=== PATIENT | female | born 1980 | race Caucasian/White ===

== ENCOUNTER 2020-01-22 03:15 | Inpatient (IN) | payer OTHER ==
[2020-01-22] VITALS (8 sets, daily range): BP systolic 99–119; BP diastolic 43–63
[~2020-01-22] VITALS: Ht 175.3 cm; Wt 73.0 kg
[2020-01-22] MEDS ORDERED: SUCCINYLCHOLINE 200 MG/10 ML VIAL. ONE (03:52)
[2020-01-22] MEDS ORDERED: ROCURONIUM 50 MG/5 ML VIAL. ONE (03:52)
[2020-01-22] MEDS ORDERED: MIDAZOLAM HCL/PF 2 MG/2 ML VIAL. ONE (03:52)
[2020-01-22] MEDS ORDERED: fentaNYL PF VIAL 100 MCG/2 ML VIAL ONE ×3 (03:52→06:47)
[2020-01-22] MEDS ORDERED: NEOSTIGMINE METHYLSULFATE 5 MG/5 ML SYRINGE. ONE (03:52)
[2020-01-22] MEDS ORDERED: GLYCOPYRROLATE 1 MG/5 ML VIAL. ONE (03:54)
[2020-01-22] MEDS ORDERED: MORPHINE SULFATE 2 MG/ML VIAL. IV PRN (04:00)
[2020-01-22] MEDS ORDERED: HYDROmorphone 2 MG/ML VIAL IV PRN (04:00)
[2020-01-22] MEDS ORDERED: PROCHLORPERAZINE 10 MG/2 ML VIAL. IV PRN (04:00)
[2020-01-22] MEDS ORDERED: IV RINGERS,LACTATED 1000ML 1,000 ML IV SCH (04:00)
[2020-01-22] MEDS ORDERED: fentaNYL PF VIAL 100 MCG/2 ML VIAL IV PRN ×2 (04:00)
[2020-01-22] MEDS ORDERED: cefOXitin SODIUM IV Push 2 GM VIAL. IVP PRN (04:00)
[2020-01-22] MEDS ORDERED: ONDANSETRON PF 4 MG/2 ML VIAL. IV PRN (04:00)
--- NOTE | 2020-01-22 04:00 | PDOC2 ---
CONSULT Date of Consult Date of Consult DATE: 01/22/20 TIME: 03:52 Reason for Consult Reason for Consult: bowel injury Referring Physician Referring Physician: Dr. Fernandez Identification/Chief Complaint Chief Complaint abd pain Source Source: Chart review, Patient History of Present Illness Reason for Visit: 39 yo F underwent laparoscopic exploration, lysis of adhesions, ablation of endometriosis and drainage of ovarian cyst yesterday at outside facility. Had some bloating and took Gas x. Subsequently worsened with pain in RLQ and radiating to upper abdomen and back. Pain did not relent. Associated nausea. Seen at [facility] and transferred to [facility]. Pt seen in preop accompanied by supportive . Past Medical History Pulmonary: Other (seasonal allergies) Renal/: Other (endometeriosis) Past Surgical History Past Surgical History: (x3), Other (sinus surgery) Family History Family History: No Significant Social History No ALCOHOL: social Current Medications Current Medications leroy and flonas Allergies Allergies: Coded Allergies: No Known Drug Allergies (Unverified , 01/22/20) ROS Gastrointestinal: Yes Nausea, Yes Abdominal Pain Physical Exam General: Alert, Oriented X3, Cooperative, moderate distress HEENT: Atraumatic, Other (NGT in place) Lungs: Normal air movement Abdomen: Other (diffuse TTP, ND, 3 x bandages) Extremities: No clubbing, No cyanosis Skin: No rashes, No breakdown Neuro: Normal speech, Sensation intact Psych/Mental Status: Mental status NL, Mood NL Labs Labs Reviewed [facility] labs Images Images Reviewed [facility] CT with pneumoperitoneum, contrast extraluminal and inflammation of bowel Assessment/Plan Assessment/Plan Suspected bowel perforation NGT placed, IV abx started TO OR for laparoscopic exploration and possible bowel repair. R/R/B/A d/w pt and pt's . Risks, including, but not limited to: bleeding, infection, damage to surrounding structures, risk of anesthesia, risk of open. They appear to understand, their questions are answered and they elect to proceed. Thanks for consult! MURRAY STOREY MD Jan 22, 2020 04:00
[2020-01-22] MEDS ORDERED: BUPIVACAINE MPF 0.5% 30 ML VIAL. ONE (04:29)
[2020-01-22] MEDS ORDERED: ePHEDrine PF IN SALINE 50 MG/10 ML SYRINGE. IV ONE (05:57)
[2020-01-22] MEDS: IV NORMAL SALINE 1000ML BAG 1,000 ML IV SCH (06:23)
[2020-01-22] MEDS ORDERED: ONDANSETRON PF 4 MG/2 ML VIAL. IVP PRN (06:30)
[2020-01-22] MEDS ORDERED: NALOXONE 0.4 MG/ML VIAL. IV PRN (06:30)
[2020-01-22] MEDS ORDERED: MORPHINE SULFATE 30 ML IV PRN (06:30)
[2020-01-22] MEDS ORDERED: 0.9 % SODIUM CHLORIDE 10 ML DISP.SYRIN. IV PRN (06:30)
[2020-01-22] MEDS ORDERED: SEVOFLURANE 61 TO 120 MINUTES. IH ONE (06:37)
[2020-01-22] MEDS: IV RINGERS,LACTATED 1000ML 1,000 ML IV SCH ×2 (07:00→17:19)
--- NOTE | 2020-01-22 09:18 | PDOC4 ---
OPERATIVE NOTE Date: Date: Jan 22, 2020 Pre-Op Diagnosis: Small bowel injury Post-Op Diagnosis: same Procedure Performed: laparoscopically assisted small bowel repair Surgeon: Samuel Storey Anesthesia Type: GETA plus local Blood Loss: 50 Specimans Obtained: none Findings: pneumoperitoneum, hemoperitoneum, fibrinous changes, small bowel wound in mid distal small bowel, 1 cm diameter, no bleeding identified, some ecchymosis of small bowel mesentery; normal stomach, gallbladder, liver, colon, appendix. No evidence of ureteral or bladder injury. Uterus and ovaries normal. Evidence of ablation on pelvic peritoneum, c/w endometeriosis ablation, but no additional endometriosis noted. Complications: none Operative Note: After obtaining informed consent, patient was taken to OR, induced under GETA and prepped in the usual fashion. Previous laparoscopic sutures removed and 5 mm ports introduced in RLQ and suprapubic, all under laparoscopic guidance. New 5 mm port placed LLQ. Abdominal cavity was explored and noted as above. Copious irrigation and gentle separation of small bowel. Infraumbilical incision made with cautery and small bowel eviscerated. This was run from ligament of treitz to terminal ileum. Enterotomy identified. It was clean and sharp edged. No evidence of obstruction or other injury. This was repaired with 3 0 PDS and 3 0 vicryl. Repair appeared to be patent, under no tension, completely viable without evidence of leakage. Bowel was returned to abdominal cavity. Fascia repaired with 0 looped PDS. Pneumoperitoneum reestablished. Copious irrigation. No evidence of bleeding or other pathology. Ports removed without bleeding. Skin repaired with 3 0 vicryl and 3 0 monocryl. Dressings placed. Patient tolerated procedure well and sent to PACU in stable condition. All counts correct. Wound class is dirty, 4. MURRAY STOREY MD Jan 22, 2020 09:18
--- NOTE | 2020-01-22 10:15 | PDOC ---
PROGRESS NOTES Date of Service DATE: 01/22/20 TIME: 10:09 Subjective Subjective Pt awake and alert in bed with NG upon arrival. No acute distress Objective Objective Vital Signs Date Time Temp Pulse Resp B/P (MAP) Pulse Ox O2 Delivery O2 Flow Rate FiO2 01/22/20 08:00 Nasal Cannula 2.0 01/22/20 07:56 66 16 101/46 100 01/22/20 06:27 97.5 97.5 Intake and Output 01/22/20 07:00 Output Total 300 ml Balance -300 ml Output Urine Total 250 ml Estimated Blood Loss 50 ml Physical Exam Physical Exam NG in place all abd incisions c/d/i with bandages Abdomen: Soft, Other (all bandages c/d/i) Extremities: No clubbing, No cyanosis, No edema General: Alert, Oriented X3, Cooperative, No acute distress HEENT: Atraumatic Assessment Assessment POD#1 s/p operative scope with lysis of adhesions and vaporazation of endometriosis at [facility] as outpatient POD#[address] Ayala for Small bowel injury long discussion with patient and family ( and father present) about endometriosis, chronic condition and options long history of suffering since 20yrs old and never diagnosed until now discussed decreasing periods and making them lmsw or absent if possible to help keep it from coming back right away also discussed medical options of depo lupron and orlissa small bowel injury most likely during initial trochar placement of umbilical port they expressed understanding answered all questions spent >20min with family in room at bedside Plan Plan of Care will follow as needed Comment Review of Relevant I have reviewed the following items sarah (where applicable) has been applied. Labs Laboratory Tests Test 01/22/20 04:30 SARS-CoV-2 Antigen (Rapid) Negative (NEGATIVE) Laboratory Tests Test 01/22/20 04:30 SARS-CoV-2 Antigen (Rapid) Negative (NEGATIVE) Medications Current Medications Cefoxitin Sodium (Mefoxin) 2 gm PREOP PRN PRN IVP PREOP Last administered on 01/22/20at 05:17; Start 01/22/20 at 04:00; Stop 01/24/20 at 03:59 Neostigmine [place] (Neostigmine Methylsulfate) 5 mg STK-MED ONCE .ROUTE ; Start 01/22/20 at 03:52; Stop 01/22/20 at 03:52; Status DC Succinylcholine Chloride (Anectine) 200 mg STK-MED ONCE .ROUTE ; Start 01/22/20 at 03:52; Stop 01/22/20 at 03:52; Status DC Rocuronium [place] (Zemuron) 50 mg STK-MED ONCE .ROUTE ; Start 01/22/20 at 03:52; Stop 01/22/20 at 03:53; Status DC Fentanyl Citrate (Fentanyl 2ml Vial) 100 mcg STK-MED ONCE .ROUTE ; Start 01/22/20 at 03:52; Stop 01/22/20 at 03:53; Status DC Midazolam HCl (Versed) 2 mg STK-MED ONCE .ROUTE ; Start 01/22/20 at 03:52; Stop 01/22/20 at 03:53; Status DC Glycopyrrolate (Robinul) 1 mg STK-MED ONCE .ROUTE ; Start 01/22/20 at 03:54; Stop 01/22/20 at 03:54; Status DC Ondansetron HCl (Zofran) 4 mg PRN Q6HRS PRN IV NAUSEA/VOMITING; Start 01/22/20 at 04:00; Stop 01/23/20 at 03:59 Fentanyl Citrate (Fentanyl 2ml Vial) 25 mcg PRN Q5MIN PRN IV MILD PAIN 1-3 Last administered on 01/22/20at 06:53; Start 01/22/20 at 04:00; Stop 01/23/20 at 03:59 Fentanyl Citrate (Fentanyl 2ml Vial) 50 mcg PRN Q5MIN PRN IV MODERATE TO SEVERE PAIN; Start 01/22/20 at 04:00; Stop 01/23/20 at 03:59 Morphine Sulfate (Morphine Sulfate) 1 mg PRN Q10MIN PRN IV SEVERE PAIN 7-10; Start 01/22/20 at 04:00; Stop 01/23/20 at 03:59 Ringer's Solution 1,000 ml @ 30 mls/hr Q24H IV ; Start 01/22/20 at 04:00; Stop 01/22/20 at 15:59 Hydromorphone HCl (Dilaudid) 0.5 mg PRN Q10MIN PRN IV SEV PAIN, Second choice; Start 01/22/20 at 04:00; Stop 01/23/20 at 03:59 Prochlorperazine Edisylate (Compazine) 5 mg PACU PRN PRN IV NAUSEA, MRX1; Start 01/22/20 at 04:00; Stop 01/23/20 at 03:59 Bupivacaine HCl (Sensorcaine Mpf 0.5%) 30 ml STK-MED ONCE .ROUTE Last administered on 01/22/20at 05:26; Start 01/22/20 at 04:29; Stop 01/22/20 at 04:29; Status DC Fentanyl Citrate (Fentanyl 2ml Vial) 100 mcg STK-MED ONCE .ROUTE ; Start 01/22/20 at 05:41; Stop 01/22/20 at 05:41; Status DC Ephedrine Sulfate (ePHEDrine PF IN SALINE SYRINGE) 50 mg STK-MED ONCE IV ; Start 01/22/20 at 05:57; Stop 01/22/20 at 05:57; Status DC Cefoxitin Sodium (Mefoxin) 1 gm Q6H IVP ; Start 01/22/20 at 11:00; Stop 01/22/20 at 23:01 Enoxaparin Sodium (Lovenox 40mg Syringe) 40 mg QHS SQ ; Start 01/22/20 at 21:00 Sodium Chloride (Normal Saline Flush) 3 ml QSHIFT PRN IV AFTER MEDS AND BLOOD DRAWS; Start 01/22/20 at 06:30 Ringer's Solution 1,000 ml @ 100 mls/hr Q10H IV Last administered on 01/22/20at 07:00; Start 01/22/20 at 07:00 Naloxone HCl (Narcan) 0.4 mg PRN Q2MIN PRN IV SEE INSTRUCTIONS; Start 01/22/20 at 06:30 Sodium Chloride 1,000 ml @ 25 mls/hr Q24H IV ; Start 01/22/20 at 06:23 Morphine Sulfate 30 ml @ 0 mls/hr CONT PRN PRN IV PER PROTOCOL Last administered on 01/22/20at 07:07; Start 01/22/20 at 06:30 Ondansetron HCl (Zofran) 4 mg PRN Q6HRS PRN IVP NABRIGIDOA, 1ST CHOICE; Start 01/22/20 at 06:30 Sevoflurane (Ultane) 60 ml STK-MED ONCE IH ; Start 01/22/20 at 06:37; Stop 01/22/20 at 06:38; Status DC Fentanyl Citrate (Fentanyl 2ml Vial) 100 mcg STK-MED ONCE .ROUTE ; Start 01/22/20 at 06:47; Stop 01/22/20 at 06:48; Status DC Vitals/I & O Vital Sign - Last 24 Hours 01/22/20 01/22/20 01/22/20 01/22/20 06:26 06:27 06:41 06:53 Temp 97.5 97.5 Pulse 68 60 Resp 16 17 16 B/P (MAP) 114/74 112/51 Pulse Ox 100 100 100 O2 Delivery Mask Simple Mask Simple Mask Simple Mask O2 Flow Rate 10 10 10 10.0 01/22/20 01/22/20 01/22/20 01/22/20 06:56 07:07 07:11 07:26 Pulse 58 60 59 Resp 16 16 16 18 B/P (MAP) 105/33 104/47 100/36 Pulse Ox 100 100 100 100 O2 Delivery Simple Mask Simple Mask Nasal Cannula Nasal Cannula O2 Flow Rate 10.0 10.0 2 2 01/22/20 01/22/20 01/22/20 01/22/20 07:41 07:56 08:00 08:00 Pulse 63 66 Resp 16 16 B/P (MAP) 73/53 101/46 Pulse Ox 100 100 O2 Delivery Nasal Cannula Nasal Cannula Nasal Cannula Nasal Cannula O2 Flow Rate 2 2 2.0 2.0 Intake and Output 01/21/20 01/21/20 01/22/20 15:00 23:00 07:00 Output Total 300 ml Balance -300 ml Justifications for Admission Other Justification ANA MENDOZA MD Jan 22, 2020 10:15
[2020-01-22] MEDS: cefOXitin SODIUM IV Push 1 GM VIAL. IVP SCH ×3 (10:39→23:31)
--- NOTE | 2020-01-22 12:11 | HP ---
ADMIT DATE: 01/22/2020 HISTORY OF PRESENT ILLNESS: The patient is a 39-year-old female patient who apparently presented to the Emergency Room complaining of severe abdominal pain and pelvic pain after having surgery, same day. The patient had a laparoscopic surgery, which she has had ablation done of endometriosis and drainage of ovarian cyst. She states that she initially felt okay, but around 4:00 p.m., she developed sharp shooting pains from her right abdomen into her lower abdomen. She called her surgeon at the time, who recommended Gasex. She has tried the medication, tried walking around without any relief. She took Percocet prior to arrival without any relief. She states that the pain is unbearable and she can barely move. She called her surgeon who again recommended going to the Emergency Room where she was extensively evaluated. Her lab work showed that she has leukocytosis. Her chemistry was essentially unremarkable; however, CT scan of the abdomen showed that there is air seen within the subcutaneous soft tissue as well as intraperitoneal free air. The patient has abdominal surgery today, which can explain the free air; however, within the pelvis anteriorly, there is some contrast seen, which is suspected to be extraluminal in nature, aborting some of the bowel loops. Therefore, this does raise a concern for perforation. There are several small bowel loops seen adjacent to this location and therefore small bowel perforation within the pelvis is the suspected source. There is free fluid is seen within the abdomen and pelvis and is more than typically seen postoperatively. Additionally, portions appears high density, which can be seen with a hemorrhagic component. There is also some thickening of the peritoneal lining at portion of the fluid suggestive of peritoneal inflammation would correlate with symptoms of peritonitis. She had enhancing structures in the right adnexa, which could be related to the right ovary, but unclear etiology given that this is within the region of the fluid and low density at the ____ triage nonspecific in nature and could be related to the patient's hydration status, but would correlate with symptoms and lab markers to ensure that there is not a cholangitis or hepatitis contributing. The patient was treated with IV fluid as well as Zosyn and pain medication, was transferred to [facility] after contacting the surgical team for definitive surgical treatment. PAST MEDICAL HISTORY: Significant for irritable bowel syndrome and endometriosis. PAST SURGICAL HISTORY: Significant for three C-sections, two sinus surgeries, breast augmentation surgery, and right ankle surgery. ALLERGIES: She has no known drug allergies. MEDICATIONS: She is currently on Flonase 2 sprays to each nostril once a day. She is on Isabel, Elderberry, probiotics. FAMILY HISTORY: She has one brother older and has hypertension. One sister older, she has chronic myeloid leukemia and polycystic ovary syndrome. Her father is alive at age of 68 and seemingly healthy. Her mother is alive at the age of 67 and has COPD. SOCIAL HISTORY: She is , has 2 sons and 1 daughter. She quit smoking about 14 years ago. Drinks alcohol occasionally. Does not use any drugs. 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 She has just moved here recently. PHYSICAL EXAMINATION: GENERAL: On arrival to the Emergency Room, the patient looked well and was clearly in no apparent respiratory distress. No pallor, jaundice, cyanosis or thyromegaly. No jugular venous distention. No limb edema. VITAL SIGNS: Her heart rate was 56, blood pressure was 150/80, temperature was 98, respiratory rate was 24, and oxygen saturation was 99% on room air. HEAD, EYES, EARS, NOSE AND THROAT: Normocephalic, atraumatic. NECK: Supple. HEART: Showed normal first and second heart sounds. No gallop or murmur. CHEST: Clear to auscultation. No crepitation or rhonchi. ABDOMEN: Firm with diffuse tenderness, worse in the lower abdomen with rebound and guarding. NEUROLOGIC: She was awake, alert and oriented x 3 with no obvious motor or sensory deficit. Skin is warm, dry and intact. PSYCHOLOGICAL: Affect and mood are normal. LABORATORY DATA: Showed that her white cell count was 14,000, hemoglobin 12, hematocrit 36, MCV 88 and platelet count of 170,000 with a manual differential showed 91% polymorphs, 3% lymphocytes and 5% monocytes. Her serum sodium was 135, potassium 4.2, chloride 100, bicarbonate 23, anion gap of 12, BUN 9, creatinine was 0.9, estimated GFR was 70 mL per minute. Her glucose was 145, calcium was 8.9. Total bilirubin, AST, ALT, alkaline phosphatase were normal. Total protein 6.6, albumin 3.8. ASSESSMENT AND PLAN: The patient was transferred to [facility] with a diagnosis of bowel perforation, postoperative bleeding, and acute peritonitis. She was transferred to [facility], kept n.p.o. with an NG tube to suction and was continued on IV fluid as well as I would continue probably antibiotic. She is already on cefoxitin 1 gram IV every 6 hours and morphine by CABLE TELEVISION TECHNICIAN. LUCHO LOPEZ MD DR: NEPTALI/xiomara JOB#: [id number] / [id number]
[2020-01-22] MEDS ORDERED: BENZOCAINE/MENTHOL LOZENGE. PO PRN (12:30)
[2020-01-22] MEDS ORDERED: LACT1CAP29 PO (17:17)
[2020-01-22] MEDS ORDERED: FEXO1TAB31 PO (17:17)
[2020-01-22] MEDS ORDERED: FLUT9.9S NS (17:17)
[2020-01-22] MEDS: HYDROmorphone 12mg/30ml PCA 30 ML IV PRN (18:47)
[2020-01-22] MEDS: ENOXAPARIN 40 MG/0.4 ML SYRINGE. SQ SCH (21:34)
--- NOTE | 2020-01-22 21:35 | NUR ---
Lovenox injection ordered. Patient stated "I don't want to take it until tomorrow." "I had 2 surgeries and I think it's to soon." Lovenox held.
[2020-01-23 03:00] VITALS: BP 126/69
[2020-01-23] MEDS: IV RINGERS,LACTATED 1000ML 1,000 ML IV SCH ×2 (03:00→11:59)
[2020-01-23 05:36] LABS: BASO % 0 % (0-3); EOS % 0 % (0-3); HEMATOCRIT 32.9 % (36.0-47.0); HEMOGLOBIN 10.9 g/dL (12.0-15.5); LYMPH % 12 % (24-48); MEAN CORPUSCULAR HEMOGLOBIN 29 pg (25-35); MEAN CORPUSCULAR HGB CONC 33 g/dL (31-37); MEAN CORPUSCULAR VOLUME 89 fL (79-100); MONO # 0.5 x10^3/uL (0.0-1.1); MONO % 7 % (0-9); NEUT # 6.8 x10^3/uL (1.8-7.7); NEUT % 82 % (31-73); PLATELET COUNT 156 x10^3/uL (140-400); RED CELL DISTRIBUTION WIDTH 14.8 % (11.5-14.5); WHITE BLOOD COUNT 8.3 x10^3/uL (4.0-11.0)
[2020-01-23 05:58] LABS: ALBUMIN 2.8 g/dL (3.4-5.0); ALBUMIN/GLOBULIN RATIO 1.2 (1.0-1.7); CALCIUM 8.3 mg/dL (8.5-10.1); CREATININE 0.8 mg/dL (0.6-1.0); GFR 80.7; POTASSIUM 3.8 mmol/L (3.5-5.1); TOTAL BILIRUBIN 0.7 mg/dL (0.2-1.0); TOTAL PROTEIN 5.1 g/dL (6.4-8.2)
[2020-01-23] MEDS: IV NORMAL SALINE 1000ML BAG 1,000 ML IV SCH (06:10)
[2020-01-23 07:00] VITALS: BP 138/70
--- NOTE | 2020-01-23 09:48 | PDOC ---
SURGICAL PROGRESS NOTE DATE: 01/23/20 TIME: 09:45 Subjective headache sore Vital Signs Vital Signs Date Time Temp Pulse Resp B/P (MAP) Pulse Ox O2 Delivery O2 Flow Rate FiO2 01/23/20 08:00 Nasal Cannula 1.5 01/23/20 07:00 98.1 90 16 138/70 (92) 98 98.1 I&O Intake and Output 01/23/20 07:00 Intake Total 2020 ml Output Total 1225 ml Balance 795 ml Intake IV Total 2020 ml Output Urine Total 1225 ml PATIENT HAS A OCONNELL: Yes General: Alert, Cooperative HEENT: Other (NG in place) Abdomen: Soft, Other (dressing dry) Labs Laboratory Tests Test 01/22/20 04:30 01/23/20 04:07 SARS-CoV-2 Antigen (Rapid) Negative (NEGATIVE) White Blood Count 8.3 x10^3/uL (4.0-11.0) Red Blood Count 3.70 x10^6/uL (3.50-5.40) Hemoglobin 10.9 g/dL (12.0-15.5) Hematocrit 32.9 % (36.0-47.0) Mean Corpuscular Volume 89 fL (79-100) Mean Corpuscular Hemoglobin 29 pg (25-35) Mean Corpuscular Hemoglobin Concent 33 g/dL (31-37) Red Cell Distribution Width 14.8 % (11.5-14.5) Platelet Count 156 x10^3/uL (140-400) Neutrophils (%) (Auto) 82 % (31-73) Lymphocytes (%) (Auto) 12 % (24-48) Monocytes (%) (Auto) 7 % (0-9) Eosinophils (%) (Auto) 0 % (0-3) Basophils (%) (Auto) 0 % (0-3) Neutrophils # (Auto) 6.8 x10^3/uL (1.8-7.7) Lymphocytes # (Auto) 1.0 x10^3/uL (1.0-4.8) Monocytes # (Auto) 0.5 x10^3/uL (0.0-1.1) Eosinophils # (Auto) 0.0 x10^3/uL (0.0-0.7) Basophils # (Auto) 0.0 x10^3/uL (0.0-0.2) Sodium Level 143 mmol/L (136-145) Potassium Level 3.8 mmol/L (3.5-5.1) Chloride Level 108 mmol/L (98-107) Carbon Dioxide Level 27 mmol/L (21-32) Anion Gap 8 (6-14) Blood Urea Nitrogen 8 mg/dL (7-20) Creatinine 0.8 mg/dL (0.6-1.0) Estimated GFR (Cockcroft-Gault) 80.7 BUN/Creatinine Ratio 10 (6-20) Glucose Level 74 mg/dL (70-99) Calcium Level 8.3 mg/dL (8.5-10.1) Total Bilirubin 0.7 mg/dL (0.2-1.0) Aspartate Amino Transf (AST/SGOT) 12 U/L (15-37) Alanine Aminotransferase (ALT/SGPT) 16 U/L (14-59) Alkaline Phosphatase 33 U/L (46-116) Total Protein 5.1 g/dL (6.4-8.2) Albumin 2.8 g/dL (3.4-5.0) Albumin/Globulin Ratio 1.2 (1.0-1.7) Laboratory Tests Test 01/23/20 04:07 White Blood Count 8.3 x10^3/uL (4.0-11.0) Red Blood Count 3.70 x10^6/uL (3.50-5.40) Hemoglobin 10.9 g/dL (12.0-15.5) Hematocrit 32.9 % (36.0-47.0) Mean Corpuscular Volume 89 fL (79-100) Mean Corpuscular Hemoglobin 29 pg (25-35) Mean Corpuscular Hemoglobin Concent 33 g/dL (31-37) Red Cell Distribution Width 14.8 % (11.5-14.5) Platelet Count 156 x10^3/uL (140-400) Neutrophils (%) (Auto) 82 % (31-73) Lymphocytes (%) (Auto) 12 % (24-48) Monocytes (%) (Auto) 7 % (0-9) Eosinophils (%) (Auto) 0 % (0-3) Basophils (%) (Auto) 0 % (0-3) Neutrophils # (Auto) 6.8 x10^3/uL (1.8-7.7) Lymphocytes # (Auto) 1.0 x10^3/uL (1.0-4.8) Monocytes # (Auto) 0.5 x10^3/uL (0.0-1.1) Eosinophils # (Auto) 0.0 x10^3/uL (0.0-0.7) Basophils # (Auto) 0.0 x10^3/uL (0.0-0.2) Sodium Level 143 mmol/L (136-145) Potassium Level 3.8 mmol/L (3.5-5.1) Chloride Level 108 mmol/L (98-107) Carbon Dioxide Level 27 mmol/L (21-32) Anion Gap 8 (6-14) Blood Urea Nitrogen 8 mg/dL (7-20) Creatinine 0.8 mg/dL (0.6-1.0) Estimated GFR (Cockcroft-Gault) 80.7 BUN/Creatinine Ratio 10 (6-20) Glucose Level 74 mg/dL (70-99) Calcium Level 8.3 mg/dL (8.5-10.1) Total Bilirubin 0.7 mg/dL (0.2-1.0) Aspartate Amino Transf (AST/SGOT) 12 U/L (15-37) Alanine Aminotransferase (ALT/SGPT) 16 U/L (14-59) Alkaline Phosphatase 33 U/L (46-116) Total Protein 5.1 g/dL (6.4-8.2) Albumin 2.8 g/dL (3.4-5.0) Albumin/Globulin Ratio 1.2 (1.0-1.7) Problem List s/p SBR abx, NG Justicifation of Admission Dx: Justifications for Admission: Justification of Admission Dx: Yes Chronic Renal Failure: Severe Infection LORI WELLER ASSESSMENT SERVICES MANAGER Jan 23, 2020 09:48
--- NOTE | 2020-01-23 10:31 | PN ---
DATE: 01/23/2020 SUBJECTIVE: The patient vomiting the swelling is resting, slightly propped up in bed, in no apparent distress, awake, alert. Her pain has worsened yesterday. We will change her morphine to Dilaudid. She continued to have NG tube to intermittent suction, has had no bowel movement, did not pass any gas. OBJECTIVE: GENERAL: When I examined her, she looked well and was clearly in no apparent respiratory distress. No pallor, jaundice, cyanosis or thyromegaly. No jugular venous distention. No lower limb edema. VITAL SIGNS: Her heart rate was 90, blood pressure was 138/70, temperature was 98.1, respiratory rate was 16, and oxygen saturation was 98%. HEAD, EYES, EARS, NOSE AND THROAT: Showed normocephalic, atraumatic. She has NG tube to the right nostril. NECK: Supple. CARDIAC: Normal first and second heart sounds. No gallop or murmur. CHEST: Shows central trachea, equal bilateral chest expansion, air entry, vesicular sounds. No crepitation or rhonchi. ABDOMEN: Distended, softer than yesterday. However bowel sounds are sluggish. NEUROLOGIC: She is awake, alert, responding appropriately. She is grossly intact. Her intake and output are incompletely recorded. LABORATORY DATA: Her lab work this morning showed a white cell count of 8300, hemoglobin 11, hematocrit 33, MCV 89, platelet count of 156,000. Her chemistry showed a serum sodium 143, potassium 3.8, chloride 108, bicarbonate 27, anion gap of 8, BUN 8, creatinine 0.8, estimated GFR was 80 mL per minute. Her glucose was 74, calcium was 8.3. Total bilirubin, AST, ALT, alkaline phosphatase were normal. Total protein 5.1, albumin was 2.8. ASSESSMENT: 1. The patient is status post small bowel repair. 2. Small bowel injury with bleeding and acute peritonitis. 3. Endometriosis. 4. Irritable bowel syndrome. PLAN: To continue with NG tube to suction. Continue with IV antibiotic. Continue with pain management. Continue with IV fluid. Given that she is n.p.o. and repeat that for a while, PT and OT may be a consideration. LUCHO LOPEZ MD DR: NEPTALI/xiomara JOB#: [id number] / [id number]
[2020-01-23 11:00] VITALS: BP 122/62
[2020-01-23] MEDS: PIPERACILLIN/TAZOBACTAM 3.375 GM in IV NORMAL SALINE 50ML 50 ML IV SCH ×3 (12:03→23:56)
[2020-01-23] MEDS: ACETAMINOPHEN 650 MG SUPP.RECT. PR PRN ×2 (12:04→21:12)
[2020-01-23 15:00] VITALS: BP 124/66
--- NOTE | 2020-01-23 15:03 | NUR ---
TELEGRAPH INSTALLER pump disconnected prior to history being checked and cleared. New pump connected and program restored. Verified by another FREDERICK Toro.
[2020-01-23] MEDS: HYDROmorphone 12mg/30ml PCA 30 ML IV PRN (15:59)
[2020-01-23 19:15] VITALS: BP 129/64
[2020-01-23] MEDS: ENOXAPARIN 40 MG/0.4 ML SYRINGE. SQ SCH (21:12)
[2020-01-23 22:57] VITALS: BP 117/61
[2020-01-24] MEDS: IV RINGERS,LACTATED 1000ML 1,000 ML IV SCH ×3 (00:01→19:57)
[2020-01-24 02:54] VITALS: BP 111/64
[2020-01-24 04:42] LABS: HEMOGLOBIN 10.1 g/dL (12.0-15.5); RED BLOOD COUNT 3.41 x10^6/uL (3.50-5.40); WHITE BLOOD COUNT 6.1 x10^3/uL (4.0-11.0)
[2020-01-24 05:00] LABS: ALBUMIN 2.5 g/dL (3.4-5.0); ALBUMIN/GLOBULIN RATIO 0.8 (1.0-1.7); CALCIUM 8.2 mg/dL (8.5-10.1); CREATININE 0.6 mg/dL (0.6-1.0); GFR 112.5; POTASSIUM 3.9 mmol/L (3.5-5.1); TOTAL BILIRUBIN 0.7 mg/dL (0.2-1.0); TOTAL PROTEIN 5.5 g/dL (6.4-8.2)
[2020-01-24] MEDS: PIPERACILLIN/TAZOBACTAM 3.375 GM in IV NORMAL SALINE 50ML 50 ML IV SCH ×4 (05:31→23:44)
[2020-01-24 07:00] VITALS: BP 111/61
--- NOTE | 2020-01-24 09:00 | PDOC ---
PROGRESS NOTES Date of Service DATE: 01/24/20 TIME: 08:56 Subjective Subjective pt just sore laying in bed. Main question from pt and her father is getting up and catheter out. No flatus yet. No n/v but not hungry yet either. Objective Objective Vital Signs Date Time Temp Pulse Resp B/P (MAP) Pulse Ox O2 Delivery O2 Flow Rate FiO2 01/24/20 07:00 98.5 68 18 111/61 (78) 99 Room Air 98.5 01/24/20 02:54 2.0 Intake and Output 01/24/20 07:00 Intake Total 0 ml Output Total 1850 ml Balance -1850 ml Intake Oral 0 ml Output Urine Total 1600 ml Gastric Drainage Total 250 ml # Voids 3 Physical Exam Physical Exam bandages all c/d/i SCDs on no acute distress Abdomen: Soft, Other (appropriate tenderness and bandages all c/d/i) Extremities: No clubbing, No cyanosis, No edema, No tenderness/swelling, Other (SCDs in place) General: Alert, Oriented X3, Cooperative, No acute distress HEENT: Atraumatic Psych/Mental Status: Mental status NL Assessment Assessment POD#3 s/p operative scope with lysis of adhesions and vaporazation of endometriosis POD #2 s/p repair of small bowel injury pt still has pulido and NG in place she would really like to sit up and possibly get catheter out today if ok with surgery team not an official consult but I was the initial surgeon and this patient is well known to me so following. Thanks Comment Review of Relevant I have reviewed the following items sarah (where applicable) has been applied. Labs Laboratory Tests Test 01/23/20 04:07 01/24/20 04:25 White Blood Count 8.3 x10^3/uL (4.0-11.0) 6.1 x10^3/uL (4.0-11.0) Red Blood Count 3.70 x10^6/uL (3.50-5.40) 3.41 x10^6/uL (3.50-5.40) Hemoglobin 10.9 g/dL (12.0-15.5) 10.1 g/dL (12.0-15.5) Hematocrit 32.9 % (36.0-47.0) 30.0 % (36.0-47.0) Mean Corpuscular Volume 89 fL (79-100) 88 fL (79-100) Mean Corpuscular Hemoglobin 29 pg (25-35) 30 pg (25-35) Mean Corpuscular Hemoglobin Concent 33 g/dL (31-37) 34 g/dL (31-37) Red Cell Distribution Width 14.8 % (11.5-14.5) 14.0 % (11.5-14.5) Platelet Count 156 x10^3/uL (140-400) 149 x10^3/uL (140-400) Neutrophils (%) (Auto) 82 % (31-73) Lymphocytes (%) (Auto) 12 % (24-48) Monocytes (%) (Auto) 7 % (0-9) Eosinophils (%) (Auto) 0 % (0-3) Basophils (%) (Auto) 0 % (0-3) Neutrophils # (Auto) 6.8 x10^3/uL (1.8-7.7) Lymphocytes # (Auto) 1.0 x10^3/uL (1.0-4.8) Monocytes # (Auto) 0.5 x10^3/uL (0.0-1.1) Eosinophils # (Auto) 0.0 x10^3/uL (0.0-0.7) Basophils # (Auto) 0.0 x10^3/uL (0.0-0.2) Sodium Level 143 mmol/L (136-145) 140 mmol/L (136-145) Potassium Level 3.8 mmol/L (3.5-5.1) 3.9 mmol/L (3.5-5.1) Chloride Level 108 mmol/L (98-107) 105 mmol/L (98-107) Carbon Dioxide Level 27 mmol/L (21-32) 24 mmol/L (21-32) Anion Gap 8 (6-14) 11 (6-14) Blood Urea Nitrogen 8 mg/dL (7-20) 10 mg/dL (7-20) Creatinine 0.8 mg/dL (0.6-1.0) 0.6 mg/dL (0.6-1.0) Estimated GFR (Cockcroft-Gault) 80.7 112.5 BUN/Creatinine Ratio 10 (6-20) 17 (6-20) Glucose Level 74 mg/dL (70-99) 84 mg/dL (70-99) Calcium Level 8.3 mg/dL (8.5-10.1) 8.2 mg/dL (8.5-10.1) Total Bilirubin 0.7 mg/dL (0.2-1.0) 0.7 mg/dL (0.2-1.0) Aspartate Amino Transf (AST/SGOT) 12 U/L (15-37) 10 U/L (15-37) Alanine Aminotransferase (ALT/SGPT) 16 U/L (14-59) 14 U/L (14-59) Alkaline Phosphatase 33 U/L (46-116) 34 U/L (46-116) Total Protein 5.1 g/dL (6.4-8.2) 5.5 g/dL (6.4-8.2) Albumin 2.8 g/dL (3.4-5.0) 2.5 g/dL (3.4-5.0) Albumin/Globulin Ratio 1.2 (1.0-1.7) 0.8 (1.0-1.7) Laboratory Tests Test 01/24/20 04:25 White Blood Count 6.1 x10^3/uL (4.0-11.0) Red Blood Count 3.41 x10^6/uL (3.50-5.40) Hemoglobin 10.1 g/dL (12.0-15.5) Hematocrit 30.0 % (36.0-47.0) Mean Corpuscular Volume 88 fL (79-100) Mean Corpuscular Hemoglobin 30 pg (25-35) Mean Corpuscular Hemoglobin Concent 34 g/dL (31-37) Red Cell Distribution Width 14.0 % (11.5-14.5) Platelet Count 149 x10^3/uL (140-400) Sodium Level 140 mmol/L (136-145) Potassium Level 3.9 mmol/L (3.5-5.1) Chloride Level 105 mmol/L (98-107) Carbon Dioxide Level 24 mmol/L (21-32) Anion Gap 11 (6-14) Blood Urea Nitrogen 10 mg/dL (7-20) Creatinine 0.6 mg/dL (0.6-1.0) Estimated GFR (Cockcroft-Gault) 112.5 BUN/Creatinine Ratio 17 (6-20) Glucose Level 84 mg/dL (70-99) Calcium Level 8.2 mg/dL (8.5-10.1) Total Bilirubin 0.7 mg/dL (0.2-1.0) Aspartate Amino Transf (AST/SGOT) 10 U/L (15-37) Alanine Aminotransferase (ALT/SGPT) 14 U/L (14-59) Alkaline Phosphatase 34 U/L (46-116) Total Protein 5.5 g/dL (6.4-8.2) Albumin 2.5 g/dL (3.4-5.0) Albumin/Globulin Ratio 0.8 (1.0-1.7) Medications Current Medications Cefoxitin Sodium (Mefoxin) 2 gm PREOP PRN PRN IVP PREOP Last administered on 01/22/20at 05:17; Start 01/22/20 at 04:00; Stop 01/24/20 at 03:59; Status DC Neostigmine [place] (Neostigmine Methylsulfate) 5 mg STK-MED ONCE .ROUTE ; Start 01/22/20 at 03:52; Stop 01/22/20 at 03:52; Status DC Succinylcholine Chloride (Anectine) 200 mg STK-MED ONCE .ROUTE ; Start 01/22/20 at 03:52; Stop 01/22/20 at 03:52; Status DC Rocuronium [place] (Zemuron) 50 mg STK-MED ONCE .ROUTE ; Start 01/22/20 at 03:52; Stop 01/22/20 at 03:53; Status DC Fentanyl Citrate (Fentanyl 2ml Vial) 100 mcg STK-MED ONCE .ROUTE ; Start 01/22/20 at 03:52; Stop 01/22/20 at 03:53; Status DC Midazolam HCl (Versed) 2 mg STK-MED ONCE .ROUTE ; Start 01/22/20 at 03:52; Stop 01/22/20 at 03:53; Status DC Glycopyrrolate (Robinul) 1 mg STK-MED ONCE .ROUTE ; Start 01/22/20 at 03:54; Stop 01/22/20 at 03:54; Status DC Ondansetron HCl (Zofran) 4 mg PRN Q6HRS PRN IV NAUSEA/VOMITING; Start 01/22/20 at 04:00; Stop 01/23/20 at 03:59; Status DC Fentanyl Citrate (Fentanyl 2ml Vial) 25 mcg PRN Q5MIN PRN IV MILD PAIN 1-3 Last administered on 01/22/20at 06:53; Start 01/22/20 at 04:00; Stop 01/23/20 at 03:59; Status DC Fentanyl Citrate (Fentanyl 2ml Vial) 50 mcg PRN Q5MIN PRN IV MODERATE TO SEVERE PAIN; Start 01/22/20 at 04:00; Stop 01/23/20 at 03:59; Status DC Morphine Sulfate (Morphine Sulfate) 1 mg PRN Q10MIN PRN IV SEVERE PAIN 7-10; Start 01/22/20 at 04:00; Stop 01/23/20 at 03:59; Status DC Ringer's Solution 1,000 ml @ 30 mls/hr Q24H IV ; Start 01/22/20 at 04:00; Stop 01/22/20 at 15:59; Status DC Hydromorphone HCl (Dilaudid) 0.5 mg PRN Q10MIN PRN IV SEV PAIN, Second choice; Start 01/22/20 at 04:00; Stop 01/23/20 at 03:59; Status DC Prochlorperazine Edisylate (Compazine) 5 mg PACU PRN PRN IV NAUSEA, MRX1; Start 01/22/20 at 04:00; Stop 01/23/20 at 03:59; Status DC Bupivacaine HCl (Sensorcaine Mpf 0.5%) 30 ml STK-MED ONCE .ROUTE Last administered on 01/22/20at 05:26; Start 01/22/20 at 04:29; Stop 01/22/20 at 04:29; Status DC Fentanyl Citrate (Fentanyl 2ml Vial) 100 mcg STK-MED ONCE .ROUTE ; Start 01/22/20 at 05:41; Stop 01/22/20 at 05:41; Status DC Ephedrine Sulfate (ePHEDrine PF IN SALINE SYRINGE) 50 mg STK-MED ONCE IV ; Start 01/22/20 at 05:57; Stop 01/22/20 at 05:57; Status DC Cefoxitin Sodium (Mefoxin) 1 gm Q6H IVP Last administered on 01/22/20at 23:31; Start 01/22/20 at 11:00; Stop 01/22/20 at 23:01; Status DC Enoxaparin Sodium (Lovenox 40mg Syringe) 40 mg QHS SQ Last administered on 01/23/20at 21:12; Start 01/22/20 at 21:00 Sodium Chloride (Normal Saline Flush) 3 ml QSHIFT PRN IV AFTER MEDS AND BLOOD DRAWS; Start 01/22/20 at 06:30 Ringer's Solution 1,000 ml @ 100 mls/hr Q10H IV Last administered on 01/24/20at 00:01; Start 01/22/20 at 07:00 Naloxone HCl (Narcan) 0.4 mg PRN Q2MIN PRN IV SEE INSTRUCTIONS; Start 01/22/20 at 06:30 Sodium Chloride 1,000 ml @ 25 mls/hr Q24H IV ; Start 01/22/20 at 06:23 Morphine Sulfate 30 ml @ 0 mls/hr CONT PRN PRN IV PER PROTOCOL Last administered on 01/22/20at 07:07; Start 01/22/20 at 06:30; Stop 01/22/20 at 18:15; Status DC Ondansetron HCl (Zofran) 4 mg PRN Q6HRS PRN IVP NAUESA, 1ST CHOICE Last administered on 01/23/20at 23:56; Start 01/22/20 at 06:30 Sevoflurane (Ultane) 60 ml STK-MED ONCE IH ; Start 01/22/20 at 06:37; Stop 01/22/20 at 06:38; Status DC Fentanyl Citrate (Fentanyl 2ml Vial) 100 mcg STK-MED ONCE .ROUTE ; Start 01/22/20 at 06:47; Stop 01/22/20 at 06:48; Status DC Throat Lozenges (Cepacol Sore Throat Lozenge) 1 nikolas PRN Q2HRS PRN PO SORE THROAT Last administered on 01/22/20at 12:32; Start 01/22/20 at 12:30 Hydromorphone HCl 30 ml @ 0 mls/hr CONT PRN PRN IV PER PROTOCOL Last administered on 01/23/20at 15:59; Start 01/22/20 at 18:15 Piperacillin Sod/ Tazobactam Sod 3.375 gm/Sodium Chloride 50 ml @ 100 mls/hr Q6HRS IV Last administered on 01/24/20at 05:31; Start 01/23/20 at 12:00 Acetaminophen (Tylenol Supp) 650 mg PRN Q6HRS PRN [place] MILD PAIN / TEMP > 100.3'F Last administered on 01/23/20at 21:12; Start 01/23/20 at 10:15 Active Scripts Active Reported Probiotic (Lactobacillus Combo No.10) 1 Each Capsule 1 Tab PO DAILY 30 Days Flonase Allergy Relief (Fluticasone Propionate) 9.9 Ml [place].susp 2 Sprays NS DAILY Isabel-D 24 Hour Tablet (Fexofenadine/Pseudoephedrine) 1 Each Tab.er.24h 1 Tab PO DAILY 30 Days Vitals/I & O Vital Sign - Last 24 Hours 01/23/20 01/23/20 01/23/20 01/23/20 11:00 15:00 15:59 16:29 Temp 97.9 98.3 97.9 98.3 Pulse 78 82 Resp 16 16 21 B/P (MAP) 122/62 (82) 124/66 (85) Pulse Ox 99 96 98 O2 Delivery Room Air Room Air Nasal Cannula Nasal Cannula O2 Flow Rate 1.5 1.5 01/23/20 01/23/20 01/23/20 01/24/20 19:15 20:00 22:57 02:54 Temp 100.1 98.6 98.6 100.1 98.6 98.6 Pulse 78 71 75 Resp 18 18 18 B/P (MAP) 129/64 (85) 117/61 (79) 111/64 (80) Pulse Ox 100 97 98 O2 Delivery Room Air Nasal Cannula Nasal Cannula Nasal Cannula O2 Flow Rate 1.5 2.0 2.0 01/24/20 07:00 Temp 98.5 98.5 Pulse 68 Resp 18 B/P (MAP) 111/61 (78) Pulse Ox 99 O2 Delivery Room Air Intake and Output 01/23/20 01/23/20 01/24/20 15:00 23:00 07:00 Intake Total 0 ml Output Total 1750 ml 100 ml Balance -1750 ml -100 ml Justifications for Admission Other Justification ANA MENDOZA MD Jan 24, 2020 09:00
--- NOTE | 2020-01-24 09:51 | PN ---
DATE: 01/24/2020 SUBJECTIVE: The patient morning is resting, slightly propped up in bed, no apparent distress, awake, alert. Denied any nausea or vomiting. Abdominal pain is well controlled, has not had passed any gas or bowel movement. PHYSICAL EXAMINATION: GENERAL: When I examined her, she looked well and was clearly in no apparent respiratory distress. No pallor, jaundice, cyanosis or thyromegaly. No jugular venous distention. No limb edema. VITAL SIGNS: Her heart rate was 68, blood pressure was 111/61, temperature was 98.5, respiratory rate was 18 and oxygen saturation was 99% on room air. HEAD, EYES, EARS, NOSE AND THROAT: Showed normocephalic, atraumatic. She has an NG tube to intermittent suction. NECK: Supple. HEART: Showed normal first and second heart sounds. No gallop, rub or murmur. CHEST: Clear to auscultation. No crepitation or rhonchi. ABDOMEN: Soft, nontender. Bowel sounds are audible. NEUROLOGIC: She is grossly intact. Her intake was 2020, output was 1225. LABORATORY DATA: As of this morning, her serum sodium was 140, potassium 3.9, chloride 105, bicarbonate 24, anion gap of 11, BUN 10, creatinine 0.6. Estimated GFR was 112 mL per minute. Her glucose was 84, calcium 8.2. Total bilirubin, AST, ALT, alkaline phosphatase were normal. Total protein 5.5, albumin 2.5. Her white cell count was 6000, hemoglobin 10, hematocrit 30, MCV 88 and platelet count of 149,000. ASSESSMENT: 1. The patient is status post small bowel repair. 2. Small bowel injury with bleeding and acute peritonitis. 3. Endometriosis. 4. Irritable bowel syndrome. 5. Postoperative paralytic ileus, improving. PLAN: To discontinue the Griffiths catheter. Continue with IV fluid, IV antibiotic. Start PT/OT. LUCHO LOPEZ MD DR: NEPTALI/xiomara JOB#: [id number] / [id number]
[2020-01-24] MEDS: IV NORMAL SALINE 1000ML BAG 1,000 ML IV SCH (09:57)
[2020-01-24 11:00] VITALS: BP 120/68
--- NOTE | 2020-01-24 11:57 | PDOC ---
SURGICAL PROGRESS NOTE DATE: 01/24/20 TIME: 11:56 Subjective nausea at times no flatus Vital Signs Vital Signs Date Time Temp Pulse Resp B/P (MAP) Pulse Ox O2 Delivery O2 Flow Rate FiO2 01/24/20 11:00 97.5 62 16 120/68 (85) 99 Room Air 97.5 01/24/20 02:54 2.0 I&O Intake and Output 01/24/20 07:00 Intake Total 0 ml Output Total 1850 ml Balance -1850 ml Intake Oral 0 ml Output Urine Total 1600 ml Gastric Drainage Total 250 ml # Voids 3 PATIENT HAS A PULIDO: Yes (dc today) General: Alert, Cooperative HEENT: Other (ng in place) Abdomen: Soft, Other (dressings dry) Labs Laboratory Tests Test 01/23/20 04:07 01/24/20 04:25 White Blood Count 8.3 x10^3/uL (4.0-11.0) 6.1 x10^3/uL (4.0-11.0) Red Blood Count 3.70 x10^6/uL (3.50-5.40) 3.41 x10^6/uL (3.50-5.40) Hemoglobin 10.9 g/dL (12.0-15.5) 10.1 g/dL (12.0-15.5) Hematocrit 32.9 % (36.0-47.0) 30.0 % (36.0-47.0) Mean Corpuscular Volume 89 fL (79-100) 88 fL (79-100) Mean Corpuscular Hemoglobin 29 pg (25-35) 30 pg (25-35) Mean Corpuscular Hemoglobin Concent 33 g/dL (31-37) 34 g/dL (31-37) Red Cell Distribution Width 14.8 % (11.5-14.5) 14.0 % (11.5-14.5) Platelet Count 156 x10^3/uL (140-400) 149 x10^3/uL (140-400) Neutrophils (%) (Auto) 82 % (31-73) Lymphocytes (%) (Auto) 12 % (24-48) Monocytes (%) (Auto) 7 % (0-9) Eosinophils (%) (Auto) 0 % (0-3) Basophils (%) (Auto) 0 % (0-3) Neutrophils # (Auto) 6.8 x10^3/uL (1.8-7.7) Lymphocytes # (Auto) 1.0 x10^3/uL (1.0-4.8) Monocytes # (Auto) 0.5 x10^3/uL (0.0-1.1) Eosinophils # (Auto) 0.0 x10^3/uL (0.0-0.7) Basophils # (Auto) 0.0 x10^3/uL (0.0-0.2) Sodium Level 143 mmol/L (136-145) 140 mmol/L (136-145) Potassium Level 3.8 mmol/L (3.5-5.1) 3.9 mmol/L (3.5-5.1) Chloride Level 108 mmol/L (98-107) 105 mmol/L (98-107) Carbon Dioxide Level 27 mmol/L (21-32) 24 mmol/L (21-32) Anion Gap 8 (6-14) 11 (6-14) Blood Urea Nitrogen 8 mg/dL (7-20) 10 mg/dL (7-20) Creatinine 0.8 mg/dL (0.6-1.0) 0.6 mg/dL (0.6-1.0) Estimated GFR (Cockcroft-Gault) 80.7 112.5 BUN/Creatinine Ratio 10 (6-20) 17 (6-20) Glucose Level 74 mg/dL (70-99) 84 mg/dL (70-99) Calcium Level 8.3 mg/dL (8.5-10.1) 8.2 mg/dL (8.5-10.1) Total Bilirubin 0.7 mg/dL (0.2-1.0) 0.7 mg/dL (0.2-1.0) Aspartate Amino Transf (AST/SGOT) 12 U/L (15-37) 10 U/L (15-37) Alanine Aminotransferase (ALT/SGPT) 16 U/L (14-59) 14 U/L (14-59) Alkaline Phosphatase 33 U/L (46-116) 34 U/L (46-116) Total Protein 5.1 g/dL (6.4-8.2) 5.5 g/dL (6.4-8.2) Albumin 2.8 g/dL (3.4-5.0) 2.5 g/dL (3.4-5.0) Albumin/Globulin Ratio 1.2 (1.0-1.7) 0.8 (1.0-1.7) Laboratory Tests Test 01/24/20 04:25 White Blood Count 6.1 x10^3/uL (4.0-11.0) Red Blood Count 3.41 x10^6/uL (3.50-5.40) Hemoglobin 10.1 g/dL (12.0-15.5) Hematocrit 30.0 % (36.0-47.0) Mean Corpuscular Volume 88 fL (79-100) Mean Corpuscular Hemoglobin 30 pg (25-35) Mean Corpuscular Hemoglobin Concent 34 g/dL (31-37) Red Cell Distribution Width 14.0 % (11.5-14.5) Platelet Count 149 x10^3/uL (140-400) Sodium Level 140 mmol/L (136-145) Potassium Level 3.9 mmol/L (3.5-5.1) Chloride Level 105 mmol/L (98-107) Carbon Dioxide Level 24 mmol/L (21-32) Anion Gap 11 (6-14) Blood Urea Nitrogen 10 mg/dL (7-20) Creatinine 0.6 mg/dL (0.6-1.0) Estimated GFR (Cockcroft-Gault) 112.5 BUN/Creatinine Ratio 17 (6-20) Glucose Level 84 mg/dL (70-99) Calcium Level 8.2 mg/dL (8.5-10.1) Total Bilirubin 0.7 mg/dL (0.2-1.0) Aspartate Amino Transf (AST/SGOT) 10 U/L (15-37) Alanine Aminotransferase (ALT/SGPT) 14 U/L (14-59) Alkaline Phosphatase 34 U/L (46-116) Total Protein 5.5 g/dL (6.4-8.2) Albumin 2.5 g/dL (3.4-5.0) Albumin/Globulin Ratio 0.8 (1.0-1.7) Assessment/Plan small bowel repair will leave NG to LIS today DC pulido ambulate Justicifation of Admission Dx: Justifications for Admission: Justification of Admission Dx: Yes Chronic Renal Failure: Severe Infection LORI WELLER APRN Jan 24, 2020 11:57
[2020-01-24] MEDS: LIDOCAINE (700MG/PATCH) PATCH. TD SCH (12:50)
[2020-01-24 15:00] VITALS: BP 122/70
[2020-01-24] MEDS ORDERED: diphenhydrAMINE 50 MG/ML VIAL IVP PRN (19:00)
[2020-01-24 19:30] VITALS: BP 128/66
[2020-01-24] MEDS: PATCH REMOVAL. MC SCH (19:57)
[2020-01-24] MEDS: ENOXAPARIN 40 MG/0.4 ML SYRINGE. SQ SCH (20:01)
[2020-01-24 23:45] VITALS: BP 133/67
[2020-01-25 03:30] VITALS: BP 111/66
[2020-01-25] MEDS: IV RINGERS,LACTATED 1000ML 1,000 ML IV SCH ×2 (05:00→11:47)
[2020-01-25] MEDS: PIPERACILLIN/TAZOBACTAM 3.375 GM in IV NORMAL SALINE 50ML 50 ML IV SCH ×3 (05:31→17:16)
[2020-01-25] MEDS: IV NORMAL SALINE 1000ML BAG 1,000 ML IV SCH (06:23)
[2020-01-25 07:00] VITALS: BP 118/62
[2020-01-25] MEDS: LIDOCAINE (700MG/PATCH) PATCH. TD SCH (08:51)
[2020-01-25 11:00] VITALS: BP 109/59
--- NOTE | 2020-01-25 11:24 | PN ---
DATE: 01/25/2020 SUBJECTIVE: The patient is resting in her recliner, in no apparent distress, awake, alert, states she has passed some gas and has been up and about, walking in the corridor. Her oxygen saturation is 98% on room air. PHYSICAL EXAMINATION: GENERAL: When I examined her, she looked well and was clearly in no apparent respiratory distress, pale, but no jaundice, cyanosis or thyromegaly. No jugular venous distention. No limb edema. VITAL SIGNS: Her heart rate was 65, blood pressure was 118/62, temperature was 98.5, respiratory rate was 18 and oxygen saturation was 98% on room air. HEAD, EYES, EARS, NOSE, AND THROAT: Showed normocephalic, atraumatic. NECK: Supple. HEART: Showed normal first and second heart sounds with no gallop, rub or murmur. CHEST: Clear to auscultation. No crepitation or rhonchi. ABDOMEN: Distended, with mild diffuse tenderness. No guarding or rigidity. No organomegaly. All hernial orifice intact. Bowel sounds normal. NEUROLOGIC: She is grossly intact. Her intake over the last 24 hours was incompletely recorded, output was 1850. No lab work was done this morning. Her labs seem to be stable. ASSESSMENT: 1. The patient is status post small bowel repair. 2. Small bowel injury with bleeding and acute peritonitis. 3. Endometriosis. 4. Irritable bowel syndrome. 5. Postoperative paralytic ileus, improving. The patient has passed some gas and her bowel sounds are easily audible. PLAN: To continue with IV fluid and IV antibiotic. Continue with PT, OT. Her NG tube could be clamped, but I will leave that decision to the surgical team and perhaps we can discontinue also her [employer]. LUCHO LOPEZ MD DR: NEPTALI/xiomara JOB#: [id number] / [id number]
[2020-01-25] MEDS: HYDROmorphone 12mg/30ml PCA 30 ML IV PRN (12:05)
--- NOTE | 2020-01-25 12:20 | PDOC ---
PROGRESS NOTES Date of Service DATE: 01/25/20 TIME: 12:19 Subjective Subjective gradual improvement, believe she passed some gas Objective Objective Vital Signs Date Time Temp Pulse Resp B/P (MAP) Pulse Ox O2 Delivery O2 Flow Rate FiO2 01/25/20 12:05 Room Air 01/25/20 11:00 98.1 66 18 109/59 (76) 98 98.1 01/24/20 02:54 2.0 Intake and Output 01/25/20 07:00 Intake Total 0 ml Balance 0 ml Intake Oral 0 ml # Voids 4 Physical Exam Abdomen: Soft Assessment Assessment S/P SB repair Plan Plan of Care Clamp NG Comment Review of Relevant I have reviewed the following items sarah (where applicable) has been applied. Labs Laboratory Tests Test 01/24/20 04:25 White Blood Count 6.1 x10^3/uL (4.0-11.0) Red Blood Count 3.41 x10^6/uL (3.50-5.40) Hemoglobin 10.1 g/dL (12.0-15.5) Hematocrit 30.0 % (36.0-47.0) Mean Corpuscular Volume 88 fL (79-100) Mean Corpuscular Hemoglobin 30 pg (25-35) Mean Corpuscular Hemoglobin Concent 34 g/dL (31-37) Red Cell Distribution Width 14.0 % (11.5-14.5) Platelet Count 149 x10^3/uL (140-400) Sodium Level 140 mmol/L (136-145) Potassium Level 3.9 mmol/L (3.5-5.1) Chloride Level 105 mmol/L (98-107) Carbon Dioxide Level 24 mmol/L (21-32) Anion Gap 11 (6-14) Blood Urea Nitrogen 10 mg/dL (7-20) Creatinine 0.6 mg/dL (0.6-1.0) Estimated GFR (Cockcroft-Gault) 112.5 BUN/Creatinine Ratio 17 (6-20) Glucose Level 84 mg/dL (70-99) Calcium Level 8.2 mg/dL (8.5-10.1) Total Bilirubin 0.7 mg/dL (0.2-1.0) Aspartate Amino Transf (AST/SGOT) 10 U/L (15-37) Alanine Aminotransferase (ALT/SGPT) 14 U/L (14-59) Alkaline Phosphatase 34 U/L (46-116) Total Protein 5.5 g/dL (6.4-8.2) Albumin 2.5 g/dL (3.4-5.0) Albumin/Globulin Ratio 0.8 (1.0-1.7) Medications Current Medications Cefoxitin Sodium (Mefoxin) 2 gm PREOP PRN PRN IVP PREOP Last administered on 01/22/20at 05:17; Start 01/22/20 at 04:00; Stop 01/24/20 at 03:59; Status DC Neostigmine [place] (Neostigmine Methylsulfate) 5 mg STK-MED ONCE .ROUTE ; Start 01/22/20 at 03:52; Stop 01/22/20 at 03:52; Status DC Succinylcholine Chloride (Anectine) 200 mg STK-MED ONCE .ROUTE ; Start 01/22/20 at 03:52; Stop 01/22/20 at 03:52; Status DC Rocuronium [place] (Zemuron) 50 mg STK-MED ONCE .ROUTE ; Start 01/22/20 at 03:52; Stop 01/22/20 at 03:53; Status DC Fentanyl Citrate (Fentanyl 2ml Vial) 100 mcg STK-MED ONCE .ROUTE ; Start 01/22/20 at 03:52; Stop 01/22/20 at 03:53; Status DC Midazolam HCl (Versed) 2 mg STK-MED ONCE .ROUTE ; Start 01/22/20 at 03:52; Stop 01/22/20 at 03:53; Status DC Glycopyrrolate (Robinul) 1 mg STK-MED ONCE .ROUTE ; Start 01/22/20 at 03:54; Stop 01/22/20 at 03:54; Status DC Ondansetron HCl (Zofran) 4 mg PRN Q6HRS PRN IV NAUSEA/VOMITING; Start 01/22/20 at 04:00; Stop 01/23/20 at 03:59; Status DC Fentanyl Citrate (Fentanyl 2ml Vial) 25 mcg PRN Q5MIN PRN IV MILD PAIN 1-3 Last administered on 01/22/20at 06:53; Start 01/22/20 at 04:00; Stop 01/23/20 at 03:59; Status DC Fentanyl Citrate (Fentanyl 2ml Vial) 50 mcg PRN Q5MIN PRN IV MODERATE TO SEVERE PAIN; Start 01/22/20 at 04:00; Stop 01/23/20 at 03:59; Status DC Morphine Sulfate (Morphine Sulfate) 1 mg PRN Q10MIN PRN IV SEVERE PAIN 7-10; Start 01/22/20 at 04:00; Stop 01/23/20 at 03:59; Status DC Ringer's Solution 1,000 ml @ 30 mls/hr Q24H IV ; Start 01/22/20 at 04:00; Stop 01/22/20 at 15:59; Status DC Hydromorphone HCl (Dilaudid) 0.5 mg PRN Q10MIN PRN IV SEV PAIN, Second choice; Start 01/22/20 at 04:00; Stop 01/23/20 at 03:59; Status DC Prochlorperazine Edisylate (Compazine) 5 mg PACU PRN PRN IV NAUSEA, MRX1; Start 01/22/20 at 04:00; Stop 01/23/20 at 03:59; Status DC Bupivacaine HCl (Sensorcaine Mpf 0.5%) 30 ml STK-MED ONCE .ROUTE Last administered on 01/22/20at 05:26; Start 01/22/20 at 04:29; Stop 01/22/20 at 04:29; Status DC Fentanyl Citrate (Fentanyl 2ml Vial) 100 mcg STK-MED ONCE .ROUTE ; Start 01/22/20 at 05:41; Stop 01/22/20 at 05:41; Status DC Ephedrine Sulfate (ePHEDrine PF IN SALINE SYRINGE) 50 mg STK-MED ONCE IV ; Start 01/22/20 at 05:57; Stop 01/22/20 at 05:57; Status DC Cefoxitin Sodium (Mefoxin) 1 gm Q6H IVP Last administered on 01/22/20at 23:31; Start 01/22/20 at 11:00; Stop 01/22/20 at 23:01; Status DC Enoxaparin Sodium (Lovenox 40mg Syringe) 40 mg QHS SQ Last administered on 01/24/20at 20:01; Start 01/22/20 at 21:00 Sodium Chloride (Normal Saline Flush) 3 ml QSHIFT PRN IV AFTER MEDS AND BLOOD DRAWS; Start 01/22/20 at 06:30 Ringer's Solution 1,000 ml @ 100 mls/hr Q10H IV Last administered on 01/25/20at 11:47; Start 01/22/20 at 07:00 Naloxone HCl (Narcan) 0.4 mg PRN Q2MIN PRN IV SEE INSTRUCTIONS; Start 01/22/20 at 06:30 Sodium Chloride 1,000 ml @ 25 mls/hr Q24H IV Last administered on 01/24/20at 09:57; Start 01/22/20 at 06:23 Morphine Sulfate 30 ml @ 0 mls/hr CONT PRN PRN IV PER PROTOCOL Last administered on 01/22/20at 07:07; Start 01/22/20 at 06:30; Stop 01/22/20 at 18:15; Status DC Ondansetron HCl (Zofran) 4 mg PRN Q6HRS PRN IVP NAUESA, 1ST CHOICE Last administered on 01/23/20at 23:56; Start 01/22/20 at 06:30 Sevoflurane (Ultane) 60 ml STK-MED ONCE IH ; Start 01/22/20 at 06:37; Stop 01/22/20 at 06:38; Status DC Fentanyl Citrate (Fentanyl 2ml Vial) 100 mcg STK-MED ONCE .ROUTE ; Start 01/22/20 at 06:47; Stop 01/22/20 at 06:48; Status DC Throat Lozenges (Cepacol Sore Throat Lozenge) 1 nikolas PRN Q2HRS PRN PO SORE THROAT Last administered on 01/22/20at 12:32; Start 01/22/20 at 12:30 Hydromorphone HCl 30 ml @ 0 mls/hr CONT PRN PRN IV PER PROTOCOL Last administered on 01/25/20at 12:05; Start 01/22/20 at 18:15 Piperacillin Sod/ Tazobactam Sod 3.375 gm/Sodium Chloride 50 ml @ 100 mls/hr Q6HRS IV Last administered on 01/25/20at 11:47; Start 01/23/20 at 12:00 Acetaminophen (Tylenol Supp) 650 mg PRN Q6HRS PRN [place] MILD PAIN / TEMP > 100.3'F Last administered on 01/23/20at 21:12; Start 01/23/20 at 10:15 Lidocaine (Lidoderm) 1 patch DAILY TD Last administered on 01/25/20at 08:51; Start 01/24/20 at 13:00 Miscellaneous (Lidoderm Patch Removal) 1 ea QHS MC Last administered on 01/24/20at 19:57; Start 01/24/20 at 21:00 Diphenhydramine HCl (Benadryl) 25 mg PRN Q6HRS PRN IVP ITCHING Last administered on 01/24/20at 19:48; Start 01/24/20 at 19:00 Active Scripts Active Reported Probiotic (Lactobacillus Combo No.10) 1 Each Capsule 1 Tab PO DAILY 30 Days Flonase Allergy Relief (Fluticasone Propionate) 9.9 Ml [place].susp 2 Sprays NS DAILY Isabel-D 24 Hour Tablet (Fexofenadine/Pseudoephedrine) 1 Each Tab.er.24h 1 Tab PO DAILY 30 Days Vitals/I & O Vital Sign - Last 24 Hours 01/24/20 01/24/20 01/24/20 01/24/20 15:00 19:30 20:00 23:45 Temp 98.2 98.8 98.2 98.2 98.8 98.2 Pulse 68 66 67 Resp 16 18 18 B/P (MAP) 122/70 (87) 128/66 (86) 133/67 (89) Pulse Ox 98 100 98 O2 Delivery Room Air Room Air Room Air Room Air 01/25/20 01/25/20 01/25/20 01/25/20 03:30 07:00 07:42 11:00 Temp 98.0 98.5 98.1 98.0 98.5 98.1 Pulse 67 65 66 Resp 18 18 18 B/P (MAP) 111/66 (81) 118/62 (80) 109/59 (76) Pulse Ox 99 98 98 O2 Delivery Room Air Room Air Room Air Room Air 01/25/20 12:05 O2 Delivery Room Air Intake and Output 01/24/20 01/24/20 01/25/20 15:00 23:00 07:00 Intake Total 0 ml Balance 0 ml Justifications for Admission Other Justification LETA KEN MD Jan 25, 2020 12:20
[2020-01-25 15:00] VITALS: BP 130/67
[2020-01-25 19:00] VITALS: BP 129/68
[2020-01-25] MEDS: PATCH REMOVAL. MC SCH (21:00)
[2020-01-25] MEDS: ENOXAPARIN 40 MG/0.4 ML SYRINGE. SQ SCH (21:46)
[2020-01-25 23:00] VITALS: BP 122/64
[2020-01-26] MEDS: IV RINGERS,LACTATED 1000ML 1,000 ML IV SCH ×2 (01:00→07:51)
[2020-01-26 03:00] VITALS: BP 116/66
[2020-01-26 04:29] LABS: HEMATOCRIT 28.4 % (36.0-47.0); HEMOGLOBIN 9.6 g/dL (12.0-15.5); RED BLOOD COUNT 3.27 x10^6/uL (3.50-5.40); RED CELL DISTRIBUTION WIDTH 13.8 % (11.5-14.5); WHITE BLOOD COUNT 2.5 x10^3/uL (4.0-11.0)
[2020-01-26 04:39] LABS: ALBUMIN 2.4 g/dL (3.4-5.0); ALBUMIN/GLOBULIN RATIO 0.8 (1.0-1.7); CALCIUM 8.1 mg/dL (8.5-10.1); CREATININE 0.6 mg/dL (0.6-1.0); GFR 112.5; POTASSIUM 3.4 mmol/L (3.5-5.1); TOTAL BILIRUBIN 0.5 mg/dL (0.2-1.0); TOTAL PROTEIN 5.3 g/dL (6.4-8.2)
[2020-01-26] MEDS: PIPERACILLIN/TAZOBACTAM 3.375 GM in IV NORMAL SALINE 50ML 50 ML IV SCH ×4 (06:22→16:33)
[2020-01-26] MEDS: IV NORMAL SALINE 1000ML BAG 1,000 ML IV SCH (06:23)
[2020-01-26 07:00] VITALS: BP 127/53
[2020-01-26] MEDS: LIDOCAINE (700MG/PATCH) PATCH. TD SCH (07:59)
--- NOTE | 2020-01-26 10:39 | PN ---
DATE: 01/26/2020 SUBJECTIVE: The patient is sitting on the edge of the bed comfortably, in no apparent distress. She has been walking around the corridors. Has passed gas, but no bowel movement yet. She has abdominal cramping. She also had her periods. Her NG tube is clamped. PHYSICAL EXAMINATION: GENERAL: When I examined her, she was pale. No jaundice, cyanosis or thyromegaly. No jugular venous distention. No lower limb edema. VITAL SIGNS: Her heart rate was 64, blood pressure was 127/53, temperature was 98.4, respiratory rate was 16, and oxygen saturation was 98% on room air. HEAD, EYES, EARS, NOSE, AND THROAT: Showed normocephalic, atraumatic. NECK: Supple. HEART: Normal first and second heart sounds. No gallop or murmur. CHEST: Clear to auscultation. No crepitation or rhonchi. ABDOMEN: Soft, nontender with normal bowel sounds. There is definitely no guarding or rigidity. No organomegaly. All hernial orifice intact. Bowel sounds normal. NEUROLOGIC: She is grossly intact. Her intake and output were incompletely recorded. LABORATORY DATA: As of this morning, her serum sodium was 142, potassium 3.4, chloride 107, bicarbonate 21, anion gap of 14, BUN 5, creatinine 0.6, estimated GFR was 112 mL per minute. Her glucose was 75, calcium was 8.1. Total bilirubin, AST, ALT, alkaline phosphatase were normal. Total protein 5.3, albumin was 2.4. Her white cell count is 2500; hemoglobin 9.6; hematocrit 28; platelet count was 179,000. ASSESSMENT: 1. The patient is status post small bowel repair. 2. Small bowel injury with bleeding and acute peritonitis. 3. Endometriosis. 4. Irritable bowel syndrome. 5. Postoperative paralytic ileus, improving. The patient is passing gas and her gastrostomy tube is clamped. 6. She has leukopenia, likely a side effect of Zosyn. 7. She has also hypokalemia. PLAN: My plan is to change her Ringer's solution to D5 with 40 mEq of potassium chloride. I will also consult the Infectious Disease as I wonder whether she needs prolonged IV antibiotics for her peritonitis and now she is having leukopenia due to Zosyn. LUCHO LOPEZ MD DR: Darrick JOB#: [id number] / [id number]
[2020-01-26] MEDS: POTASSIUM CHLORIDE 40 MEQ in IV DEXTROSE 5% 1,000 ML IV SCH (10:41)
[2020-01-26 11:00] VITALS: BP 122/58
--- NOTE | 2020-01-26 11:25 | PDOC ---
Infectious Disease Note Vital Signs: Vital Signs Vital Signs Date Time Temp Pulse Resp B/P (MAP) Pulse Ox O2 Delivery O2 Flow Rate FiO2 01/26/20 07:22 Room Air 01/26/20 07:00 98.4 64 16 127/53 (77) 98 98.4 Medications: Inpatient Meds: Current Medications Medications (Trade) Dose Ordered Sig/Dewayne Start Time Stop Time Status Last Admin Dose Admin Acetaminophen (Tylenol Supp) 650 mg PRN Q6HRS PRN 01/23/20 10:15 01/23/20 21:12 650 MG Bupivacaine HCl (Sensorcaine Mpf 0.5%) 30 ml STK-MED ONCE 01/22/20 04:29 01/22/20 04:29 DC 01/22/20 05:26 30 ML Cefoxitin Sodium (Mefoxin) 1 gm Q6H 01/22/20 11:00 01/22/20 23:01 DC 01/22/20 23:31 1 GM Diphenhydramine HCl (Benadryl) 25 mg PRN Q6HRS PRN 01/24/20 19:00 01/24/20 19:48 25 MG Enoxaparin Sodium (Lovenox 40mg Syringe) 40 mg QHS 01/22/20 21:00 01/25/20 21:46 40 MG Ephedrine Sulfate (ePHEDrine PF IN SALINE SYRINGE) 50 mg STK-MED ONCE 01/22/20 05:57 01/22/20 05:57 DC Fentanyl Citrate (Fentanyl 2ml Vial) 100 mcg STK-MED ONCE 01/22/20 06:47 01/22/20 06:48 DC Glycopyrrolate (Robinul) 1 mg STK-MED ONCE 01/22/20 03:54 01/22/20 03:54 DC Hydromorphone HCl 30 ml @ 0 mls/hr CONT PRN PRN 01/22/20 18:15 01/25/20 12:05 0 MLS/HR Hydromorphone HCl (Dilaudid) 0.5 mg PRN Q10MIN PRN 01/22/20 04:00 01/23/20 03:59 DC Lidocaine (Lidoderm) 1 patch DAILY 01/24/20 13:00 01/26/20 07:59 1 PATCH Midazolam HCl (Versed) 2 mg STK-MED ONCE 01/22/20 03:52 01/22/20 03:53 DC Miscellaneous (Lidoderm Patch Removal) 1 ea QHS 01/24/20 21:00 01/25/20 21:00 1 EA Morphine Sulfate 30 ml @ 0 mls/hr CONT PRN PRN 01/22/20 06:30 01/22/20 18:15 DC 01/22/20 07:07 0 MLS/HR Morphine Sulfate (Morphine Sulfate) 1 mg PRN Q10MIN PRN 01/22/20 04:00 01/23/20 03:59 DC Naloxone HCl (Narcan) 0.4 mg PRN Q2MIN PRN 01/22/20 06:30 Neostigmine [place] (Neostigmine Methylsulfate) 5 mg STK-MED ONCE 01/22/20 03:52 01/22/20 03:52 DC Ondansetron HCl (Zofran) 4 mg PRN Q6HRS PRN 01/22/20 06:30 01/23/20 23:56 4 MG Piperacillin Sod/ Tazobactam Sod 3.375 gm/Sodium Chloride 50 ml @ 100 mls/hr Q6HRS 01/23/20 12:00 01/26/20 06:22 100 MLS/HR Potassium Chloride 40 meq/ Dextrose 1,020 ml @ 75 mls/hr [id number] 01/26/20 10:00 01/26/20 10:41 75 MLS/HR Prochlorperazine Edisylate (Compazine) 5 mg PACU PRN PRN 01/22/20 04:00 01/23/20 03:59 DC Ringer's Solution 1,000 ml @ 100 mls/hr Q10H 01/22/20 07:00 01/26/20 09:36 DC 01/25/20 11:47 100 MLS/HR Rocuronium [place] (Zemuron) 50 mg STK-MED ONCE 01/22/20 03:52 01/22/20 03:53 DC Sevoflurane (Ultane) 60 ml STK-MED ONCE 01/22/20 06:37 01/22/20 06:38 DC Sodium Chloride 1,000 ml @ 25 mls/hr Q24H 01/22/20 06:23 01/26/20 06:23 25 MLS/HR Sodium Chloride (Normal Saline Flush) 3 ml QSHIFT PRN 01/22/20 06:30 Succinylcholine Chloride (Anectine) 200 mg STK-MED ONCE 01/22/20 03:52 01/22/20 03:52 DC Throat Lozenges (Cepacol Sore Throat Lozenge) 1 rafi PRN Q2HRS PRN 01/22/20 12:30 01/22/20 12:32 1 RAFI Labs: Lab Laboratory Tests Test 01/26/20 03:40 White Blood Count 2.5 x10^3/uL (4.0-11.0) Red Blood Count 3.27 x10^6/uL (3.50-5.40) Hemoglobin 9.6 g/dL (12.0-15.5) Hematocrit 28.4 % (36.0-47.0) Mean Corpuscular Volume 87 fL (79-100) Mean Corpuscular Hemoglobin 29 pg (25-35) Mean Corpuscular Hemoglobin Concent 34 g/dL (31-37) Red Cell Distribution Width 13.8 % (11.5-14.5) Platelet Count 179 x10^3/uL (140-400) Sodium Level 142 mmol/L (136-145) Potassium Level 3.4 mmol/L (3.5-5.1) Chloride Level 107 mmol/L (98-107) Carbon Dioxide Level 21 mmol/L (21-32) Anion Gap 14 (6-14) Blood Urea Nitrogen 5 mg/dL (7-20) Creatinine 0.6 mg/dL (0.6-1.0) Estimated GFR (Cockcroft-Gault) 112.5 BUN/Creatinine Ratio 8 (6-20) Glucose Level 75 mg/dL (70-99) Calcium Level 8.1 mg/dL (8.5-10.1) Total Bilirubin 0.5 mg/dL (0.2-1.0) Aspartate Amino Transf (AST/SGOT) 12 U/L (15-37) Alanine Aminotransferase (ALT/SGPT) 13 U/L (14-59) Alkaline Phosphatase 27 U/L (46-116) Total Protein 5.3 g/dL (6.4-8.2) Albumin 2.4 g/dL (3.4-5.0) Albumin/Globulin Ratio 0.8 (1.0-1.7) Objective: Assessment: Patient seen and examined ID consult dictated Plan: Plan of Care Continue Zosyn Add differential to lab Thank you #[id number] ALEX SHIPLEY MD Jan 26, 2020 11:25
--- NOTE | 2020-01-26 11:56 | PDOC ---
PROGRESS NOTES Date of Service DATE: 01/26/20 TIME: 11:55 Subjective Subjective doing "ok", jordi NG clamping without nausea; passing gas Objective Objective Vital Signs Date Time Temp Pulse Resp B/P (MAP) Pulse Ox O2 Delivery O2 Flow Rate FiO2 01/26/20 11:00 98.8 66 18 122/58 (79) 99 Room Air 98.8 01/24/20 02:54 2.0 Intake and Output 01/26/20 07:00 # Voids 3 Physical Exam Abdomen: Soft, No tenderness Assessment Assessment S/P SB repair Plan Plan of Care DC NG, small amount clears Comment Review of Relevant I have reviewed the following items sarah (where applicable) has been applied. Labs Laboratory Tests Test 01/26/20 03:40 White Blood Count 2.5 x10^3/uL (4.0-11.0) Red Blood Count 3.27 x10^6/uL (3.50-5.40) Hemoglobin 9.6 g/dL (12.0-15.5) Hematocrit 28.4 % (36.0-47.0) Mean Corpuscular Volume 87 fL (79-100) Mean Corpuscular Hemoglobin 29 pg (25-35) Mean Corpuscular Hemoglobin Concent 34 g/dL (31-37) Red Cell Distribution Width 13.8 % (11.5-14.5) Platelet Count 179 x10^3/uL (140-400) Sodium Level 142 mmol/L (136-145) Potassium Level 3.4 mmol/L (3.5-5.1) Chloride Level 107 mmol/L (98-107) Carbon Dioxide Level 21 mmol/L (21-32) Anion Gap 14 (6-14) Blood Urea Nitrogen 5 mg/dL (7-20) Creatinine 0.6 mg/dL (0.6-1.0) Estimated GFR (Cockcroft-Gault) 112.5 BUN/Creatinine Ratio 8 (6-20) Glucose Level 75 mg/dL (70-99) Calcium Level 8.1 mg/dL (8.5-10.1) Total Bilirubin 0.5 mg/dL (0.2-1.0) Aspartate Amino Transf (AST/SGOT) 12 U/L (15-37) Alanine Aminotransferase (ALT/SGPT) 13 U/L (14-59) Alkaline Phosphatase 27 U/L (46-116) Total Protein 5.3 g/dL (6.4-8.2) Albumin 2.4 g/dL (3.4-5.0) Albumin/Globulin Ratio 0.8 (1.0-1.7) Laboratory Tests Test 01/26/20 03:40 White Blood Count 2.5 x10^3/uL (4.0-11.0) Red Blood Count 3.27 x10^6/uL (3.50-5.40) Hemoglobin 9.6 g/dL (12.0-15.5) Hematocrit 28.4 % (36.0-47.0) Mean Corpuscular Volume 87 fL (79-100) Mean Corpuscular Hemoglobin 29 pg (25-35) Mean Corpuscular Hemoglobin Concent 34 g/dL (31-37) Red Cell Distribution Width 13.8 % (11.5-14.5) Platelet Count 179 x10^3/uL (140-400) Sodium Level 142 mmol/L (136-145) Potassium Level 3.4 mmol/L (3.5-5.1) Chloride Level 107 mmol/L (98-107) Carbon Dioxide Level 21 mmol/L (21-32) Anion Gap 14 (6-14) Blood Urea Nitrogen 5 mg/dL (7-20) Creatinine 0.6 mg/dL (0.6-1.0) Estimated GFR (Cockcroft-Gault) 112.5 BUN/Creatinine Ratio 8 (6-20) Glucose Level 75 mg/dL (70-99) Calcium Level 8.1 mg/dL (8.5-10.1) Total Bilirubin 0.5 mg/dL (0.2-1.0) Aspartate Amino Transf (AST/SGOT) 12 U/L (15-37) Alanine Aminotransferase (ALT/SGPT) 13 U/L (14-59) Alkaline Phosphatase 27 U/L (46-116) Total Protein 5.3 g/dL (6.4-8.2) Albumin 2.4 g/dL (3.4-5.0) Albumin/Globulin Ratio 0.8 (1.0-1.7) Medications Current Medications Cefoxitin Sodium (Mefoxin) 2 gm PREOP PRN PRN IVP PREOP Last administered on 01/22/20at 05:17; Start 01/22/20 at 04:00; Stop 01/24/20 at 03:59; Status DC Neostigmine [place] (Neostigmine Methylsulfate) 5 mg STK-MED ONCE .ROUTE ; Start 01/22/20 at 03:52; Stop 01/22/20 at 03:52; Status DC Succinylcholine Chloride (Anectine) 200 mg STK-MED ONCE .ROUTE ; Start 01/22/20 at 03:52; Stop 01/22/20 at 03:52; Status DC Rocuronium [place] (Zemuron) 50 mg STK-MED ONCE .ROUTE ; Start 01/22/20 at 03:52; Stop 01/22/20 at 03:53; Status DC Fentanyl Citrate (Fentanyl 2ml Vial) 100 mcg STK-MED ONCE .ROUTE ; Start 01/22/20 at 03:52; Stop 01/22/20 at 03:53; Status DC Midazolam HCl (Versed) 2 mg STK-MED ONCE .ROUTE ; Start 01/22/20 at 03:52; Stop 01/22/20 at 03:53; Status DC Glycopyrrolate (Robinul) 1 mg STK-MED ONCE .ROUTE ; Start 01/22/20 at 03:54; Stop 01/22/20 at 03:54; Status DC Ondansetron HCl (Zofran) 4 mg PRN Q6HRS PRN IV NAUSEA/VOMITING; Start 01/22/20 at 04:00; Stop 01/23/20 at 03:59; Status DC Fentanyl Citrate (Fentanyl 2ml Vial) 25 mcg PRN Q5MIN PRN IV MILD PAIN 1-3 Last administered on 01/22/20at 06:53; Start 01/22/20 at 04:00; Stop 01/23/20 at 03:59; Status DC Fentanyl Citrate (Fentanyl 2ml Vial) 50 mcg PRN Q5MIN PRN IV MODERATE TO SEVERE PAIN; Start 01/22/20 at 04:00; Stop 01/23/20 at 03:59; Status DC Morphine Sulfate (Morphine Sulfate) 1 mg PRN Q10MIN PRN IV SEVERE PAIN 7-10; Start 01/22/20 at 04:00; Stop 01/23/20 at 03:59; Status DC Ringer's Solution 1,000 ml @ 30 mls/hr Q24H IV ; Start 01/22/20 at 04:00; Stop 01/22/20 at 15:59; Status DC Hydromorphone HCl (Dilaudid) 0.5 mg PRN Q10MIN PRN IV SEV PAIN, Second choice; Start 01/22/20 at 04:00; Stop 01/23/20 at 03:59; Status DC Prochlorperazine Edisylate (Compazine) 5 mg PACU PRN PRN IV NAUSEA, MRX1; Start 01/22/20 at 04:00; Stop 01/23/20 at 03:59; Status DC Bupivacaine HCl (Sensorcaine Mpf 0.5%) 30 ml STK-MED ONCE .ROUTE Last administered on 01/22/20at 05:26; Start 01/22/20 at 04:29; Stop 01/22/20 at 04:29; Status DC Fentanyl Citrate (Fentanyl 2ml Vial) 100 mcg STK-MED ONCE .ROUTE ; Start 01/22/20 at 05:41; Stop 01/22/20 at 05:41; Status DC Ephedrine Sulfate (ePHEDrine PF IN SALINE SYRINGE) 50 mg STK-MED ONCE IV ; Start 01/22/20 at 05:57; Stop 01/22/20 at 05:57; Status DC Cefoxitin Sodium (Mefoxin) 1 gm Q6H IVP Last administered on 01/22/20at 23:31; Start 01/22/20 at 11:00; Stop 01/22/20 at 23:01; Status DC Enoxaparin Sodium (Lovenox 40mg Syringe) 40 mg QHS SQ Last administered on 01/25/20at 21:46; Start 01/22/20 at 21:00 Sodium Chloride (Normal Saline Flush) 3 ml QSHIFT PRN IV AFTER MEDS AND BLOOD DRAWS; Start 01/22/20 at 06:30 Ringer's Solution 1,000 ml @ 100 mls/hr Q10H IV Last administered on 01/25/20at 11:47; Start 01/22/20 at 07:00; Stop 01/26/20 at 09:36; Status DC Naloxone HCl (Narcan) 0.4 mg PRN Q2MIN PRN IV SEE INSTRUCTIONS; Start 01/22/20 at 06:30 Sodium Chloride 1,000 ml @ 25 mls/hr Q24H IV Last administered on 01/26/20at 06:23; Start 01/22/20 at 06:23 Morphine Sulfate 30 ml @ 0 mls/hr CONT PRN PRN IV PER PROTOCOL Last administered on 01/22/20at 07:07; Start 01/22/20 at 06:30; Stop 01/22/20 at 18:15; Status DC Ondansetron HCl (Zofran) 4 mg PRN Q6HRS PRN IVP NAUESA, 1ST CHOICE Last administered on 01/23/20at 23:56; Start 01/22/20 at 06:30 Sevoflurane (Ultane) 60 ml STK-MED ONCE IH ; Start 01/22/20 at 06:37; Stop 01/22/20 at 06:38; Status DC Fentanyl Citrate (Fentanyl 2ml Vial) 100 mcg STK-MED ONCE .ROUTE ; Start 01/22/20 at 06:47; Stop 01/22/20 at 06:48; Status DC Throat Lozenges (Cepacol Sore Throat Lozenge) 1 nikolas PRN Q2HRS PRN PO SORE THROAT Last administered on 01/22/20at 12:32; Start 01/22/20 at 12:30 Hydromorphone HCl 30 ml @ 0 mls/hr CONT PRN PRN IV PER PROTOCOL Last administered on 01/25/20at 12:05; Start 01/22/20 at 18:15 Piperacillin Sod/ Tazobactam Sod 3.375 gm/Sodium Chloride 50 ml @ 100 mls/hr Q6HRS IV Last administered on 01/26/20at 11:31; Start 01/23/20 at 12:00 Acetaminophen (Tylenol Supp) 650 mg PRN Q6HRS PRN [place] MILD PAIN / TEMP > 100.3'F Last administered on 01/23/20at 21:12; Start 01/23/20 at 10:15 Lidocaine (Lidoderm) 1 patch DAILY TD Last administered on 01/26/20at 07:59; Start 01/24/20 at 13:00 Miscellaneous (Lidoderm Patch Removal) 1 ea QHS MC Last administered on 01/25/20at 21:00; Start 01/24/20 at 21:00 Diphenhydramine HCl (Benadryl) 25 mg PRN Q6HRS PRN IVP ITCHING Last administered on 01/24/20at 19:48; Start 01/24/20 at 19:00 Potassium Chloride 40 meq/ Dextrose 1,020 ml @ 75 mls/hr [id number] IV Last administered on 01/26/20at 10:41; Start 01/26/20 at 10:00 Active Scripts Active Reported Probiotic (Lactobacillus Combo No.10) 1 Each Capsule 1 Tab PO DAILY 30 Days Flonase Allergy Relief (Fluticasone Propionate) 9.9 Ml [place].susp 2 Sprays NS DAILY Isabel-D 24 Hour Tablet (Fexofenadine/Pseudoephedrine) 1 Each Tab.er.24h 1 Tab PO DAILY 30 Days Vitals/I & O Vital Sign - Last 24 Hours 01/25/20 01/25/20 01/25/20 01/25/20 12:05 12:33 15:00 19:00 Temp 97.9 98.0 97.9 98.0 Pulse 74 63 Resp 18 18 B/P (MAP) 130/67 (88) 129/68 (88) Pulse Ox 100 98 O2 Delivery Room Air Room Air Room Air 01/25/20 01/25/20 01/26/20 01/26/20 20:00 23:00 03:00 07:00 Temp 98.0 98.1 98.4 98.0 98.1 98.4 Pulse 69 62 64 Resp 16 16 16 B/P (MAP) 122/64 (83) 116/66 (83) 127/53 (77) Pulse Ox 96 98 98 O2 Delivery Room Air Room Air 01/26/20 01/26/20 07:22 11:00 Temp 98.8 98.8 Pulse 66 Resp 18 B/P (MAP) 122/58 (79) Pulse Ox 99 O2 Delivery Room Air Room Air Justifications for Admission Other Justification LETA KEN MD Jan 26, 2020 11:56
[2020-01-26 13:30] LABS: % BANDS 10 % (0-9); % EOS 4 % (0-5); % LYMPHS 27 % (24-48); % MONOS 6 % (0-10); % SEGS 53 % (35-66); PLT ESTIMATE ADEQUATE (ADEQUATE)
[2020-01-26 15:00] VITALS: BP 129/75
[2020-01-26 19:00] VITALS: BP 128/68
[2020-01-26] MEDS: ENOXAPARIN 40 MG/0.4 ML SYRINGE. SQ SCH (20:52)
[2020-01-26] MEDS: LACTOBACILLUS RHAMNOSUS GG 1 CAPSULE. PO SCH (20:52)
[2020-01-26] MEDS: PATCH REMOVAL. MC SCH (20:53)
--- NOTE | 2020-01-26 21:05 | CONS ---
DATE OF CONSULTATION: 01/26/2020 REFERRING PHYSICIAN: Dr. Fernandez. REASON FOR CONSULTATION: Antibiotic management with underlying leukopenia. HISTORY OF PRESENT ILLNESS: This is a 39-year-old female who underwent laparoscopic exploration, lysis of adhesions, ablation of endometriosis, and drainage of ovarian cyst on 01/21/2020, as elective procedure at surgical center. The patient started having abdominal discomfort and some bloating. She took some Gas-X. Subsequently, her abdominal pain got worse without improvement with associated nausea. The patient was seen at [facility] and was transferred to [facility] as she had leukocytosis. A CT of the abdomen showed that there is air within the subcutaneous soft tissue as well as intraperitoneal free air. The patient underwent emergent laparoscopic-assisted small bowel repair on ____. The patient's white count here was 8.3 with hemoglobin of 10.9 and platelets of 156. Today, her WBC is 2.5 with a hemoglobin of 9.6, hematocrit of 28.4, platelets of 179; neutrophil count was 82, lymphocyte of 12. Sodium is 142, potassium 3.4, chloride 107, bicarb 21, BUN ____, creatinine ____, glucose 75, calcium 8.1. Total bili 0.5, AST 12, ALT 13, alk phos 27. The patient's COVID-19 PCR was negative. SARS COVID Rapid was negative. ID consult has been requested for further antibiotic management. Today, the patient states she feels a little better. Abdominal pain is under control. She believes she passed some gas. She has been up and about. She has remained afebrile, remains on room air. PAST MEDICAL HISTORY: History of endometriosis, history of irritable bowel syndrome, history of leukopenia in the past after her second . Extensive workup revealed no clear etiology. History of yeast infection for which she was treated with antibiotics recently about a month ago including antifungal. Possible ovarian cyst. PAST SURGICAL HISTORY: Three C-sections, 2 sinus surgeries, breast augmentation surgery, right ankle surgery. ALLERGIES: No known drug allergies. CURRENT MEDICATIONS: Zosyn, elderberry probiotics, Isabel, potassium chloride, diphenhydramine, acetaminophen, enoxaparin, hydromorphone, throat lozenges, ondansetron, naloxone. SOCIAL HISTORY: , 3 children. Quit smoking 14 years ago. Drinks socially. No illicit drug use. [id number] mom. PHYSICAL EXAMINATION: VITAL SIGNS: Temperature 98.4, pulse 64, respiratory rate 16, blood pressure 127/53, oxygen saturation 98% on room air. GENERAL: Alert, oriented, pleasant female, lying in bed comfortably, in no acute distress. HEENT: Normocephalic, atraumatic. Anicteric. NG tube in place. Dentition fair. No thrush. NECK: Supple. LUNGS: Clear bilaterally. No wheezing. HEART: S1, S2. No gallops or murmurs. ABDOMEN: Firm, nondistended, scaphoid. Mild diffuse tenderness. No rebound, no guarding. Dressing in place, intact, not taken down, dry. NEUROLOGIC: Alert and oriented x 3, grossly nonfocal. PSYCHIATRIC: Cooperative, appropriate mood and affect. DERMATOLOGIC: Warm, dry. No generalized rash. MUSCULOSKELETAL: No joint swelling. LABORATORY DATA: WBC 2.5, was 14 at [facility]; hemoglobin of 9.6; hematocrit of 28.4; platelets 179. Sodium 142, potassium 3.4, chloride 107, bicarb 21, BUN ____, creatinine ____ glucose 75, calcium 8.1. Total bili 0.5, AST 12, ALT 13, alk phos 27, total protein 5.3, albumin 2.4. SARS COVID PCR negative. Micro, negative. IMAGING: None here. IMPRESSION: 1. Leukopenia, etiology unclear. The patient has had leukopenia in the past with extensive workup done, reported negative. 2. Bowel perforation status post laparoscopically-assisted small bowel repair on ____. 3. Recent laparoscopic exploration, lysis of adhesions, ablation of endometriosis and drainage of ovarian cyst on 01/21/2020, done at surgical center as outpatient. 4. History of irritable bowel syndrome. 5. History of seasonal allergies. 6. History of yeast infection, treated recently. 7. History of ovarian cyst. RECOMMENDATIONS: 1. Continue Zosyn currently. 2. The patient remains afebrile without any systemic symptoms at this time. 3. Monitor closely. 4. The patient does not have any other condition suggestive of immunocompromised state. 5. We will add differential to CBC in tomorrow's labs. 6. Continue supportive care. Thank you, Dr. Fernandez, for consulting Infectious Disease to participate in this patient's care. If you have any questions, do not hesitate to contact me. ALEX SHIPLEY MD DR: MELVIN/xiomara JOB#: [id number] / [id number] MARRY
[2020-01-26 23:00] VITALS: BP 115/63
[2020-01-27] MEDS: PIPERACILLIN/TAZOBACTAM 3.375 GM in IV NORMAL SALINE 50ML 50 ML IV SCH ×4 (00:03→18:37)
[2020-01-27] MEDS: POTASSIUM CHLORIDE 40 MEQ in IV DEXTROSE 5% 1,000 ML IV SCH ×2 (00:04→13:12)
[2020-01-27 03:22] VITALS: BP 113/66
[2020-01-27] MEDS: IV NORMAL SALINE 1000ML BAG 1,000 ML IV SCH (06:05)
[2020-01-27 06:55] LABS: BASO % 1 % (0-3); EOS # 0.1 x10^3/uL (0.0-0.7); EOS % 3 % (0-3); HEMATOCRIT 30.4 % (36.0-47.0); HEMOGLOBIN 10.2 g/dL (12.0-15.5); LYMPH # 0.5 x10^3/uL (1.0-4.8); LYMPH % 18 % (24-48); MEAN CORPUSCULAR HEMOGLOBIN 29 pg (25-35); MEAN CORPUSCULAR HGB CONC 34 g/dL (31-37); MEAN CORPUSCULAR VOLUME 86 fL (79-100); MONO # 0.4 x10^3/uL (0.0-1.1); MONO % 13 % (0-9); NEUT # 1.9 x10^3/uL (1.8-7.7); NEUT % 65 % (31-73); PLATELET COUNT 232 x10^3/uL (140-400); RED BLOOD COUNT 3.53 x10^6/uL (3.50-5.40); WHITE BLOOD COUNT 2.9 x10^3/uL (4.0-11.0)
[2020-01-27 07:00] VITALS: BP 122/43
[2020-01-27 07:13] LABS: ALBUMIN 2.9 g/dL (3.4-5.0); ALBUMIN/GLOBULIN RATIO 0.9 (1.0-1.7); CALCIUM 8.7 mg/dL (8.5-10.1); CREATININE 0.6 mg/dL (0.6-1.0); GFR 112.5; POTASSIUM 3.8 mmol/L (3.5-5.1); TOTAL BILIRUBIN 0.5 mg/dL (0.2-1.0)
--- NOTE | 2020-01-27 07:54 | PDOC ---
Infectious Disease Note Subjective: Subjective Patient feels tired Abdominal pain is under control Tolerating clear liquids well Passes flatus and had a bowel movement earlier this morning Vital Signs: Vital Signs Vital Signs Date Time Temp Pulse Resp B/P (MAP) Pulse Ox O2 Delivery O2 Flow Rate FiO2 01/27/20 03:22 98.9 61 18 113/66 (82) 96 Room Air 98.9 Physical Exam: PHYSICAL EXAM GENERAL: Alert, oriented, pleasant female, lying in bed comfortably, in no acute distress. HEENT: Normocephalic, atraumatic. Anicteric. Dentition fair. No thrush. NECK: Supple. LUNGS: Clear bilaterally. No wheezing. HEART: S1, S2. No gallops or murmurs. ABDOMEN: Firm, nondistended, Dressing in place, intact, not taken down, dry.BS + Mild diffuse tenderness. No rebound,no guarding. NEUROLOGIC: Alert and oriented x 3, grossly nonfocal. PSYCHIATRIC: Cooperative, appropriate mood and affect. DERMATOLOGIC: Warm, dry. No generalized rash. MUSCULOSKELETAL: No joint swelling. Medications: Inpatient Meds: Current Medications Medications (Trade) Dose Ordered Sig/Dewayne Start Time Stop Time Status Last Admin Dose Admin Acetaminophen (Tylenol Supp) 650 mg PRN Q6HRS PRN 01/23/20 10:15 01/23/20 21:12 650 MG Bupivacaine HCl (Sensorcaine Mpf 0.5%) 30 ml STK-MED ONCE 01/22/20 04:29 01/22/20 04:29 DC 01/22/20 05:26 30 ML Cefoxitin Sodium (Mefoxin) 1 gm Q6H 01/22/20 11:00 01/22/20 23:01 DC 01/22/20 23:31 1 GM Diphenhydramine HCl (Benadryl) 25 mg PRN Q6HRS PRN 01/24/20 19:00 01/24/20 19:48 25 MG Enoxaparin Sodium (Lovenox 40mg Syringe) 40 mg QHS 01/22/20 21:00 01/26/20 20:52 40 MG Ephedrine Sulfate (ePHEDrine PF IN SALINE SYRINGE) 50 mg STK-MED ONCE 01/22/20 05:57 01/22/20 05:57 DC Fentanyl Citrate (Fentanyl 2ml Vial) 100 mcg STK-MED ONCE 01/22/20 06:47 01/22/20 06:48 DC Glycopyrrolate (Robinul) 1 mg STK-MED ONCE 01/22/20 03:54 01/22/20 03:54 DC Hydromorphone HCl 30 ml @ 0 mls/hr CONT PRN PRN 01/22/20 18:15 01/25/20 12:05 0 MLS/HR Hydromorphone HCl (Dilaudid) 0.5 mg PRN Q10MIN PRN 01/22/20 04:00 01/23/20 03:59 DC Lactobacillus Rhamnosus (Culturelle) 1 cap BID 01/26/20 21:00 Lidocaine (Lidoderm) 1 patch DAILY 01/24/20 13:00 01/26/20 07:59 1 PATCH Midazolam HCl (Versed) 2 mg STK-MED ONCE 01/22/20 03:52 01/22/20 03:53 DC Miscellaneous (Lidoderm Patch Removal) 1 ea QHS 01/24/20 21:00 01/26/20 20:53 1 EA Morphine Sulfate 30 ml @ 0 mls/hr CONT PRN PRN 01/22/20 06:30 01/22/20 18:15 DC 01/22/20 07:07 0 MLS/HR Morphine Sulfate (Morphine Sulfate) 1 mg PRN Q10MIN PRN 01/22/20 04:00 01/23/20 03:59 DC Naloxone HCl (Narcan) 0.4 mg PRN Q2MIN PRN 01/22/20 06:30 Neostigmine [place] (Neostigmine Methylsulfate) 5 mg STK-MED ONCE 01/22/20 03:52 01/22/20 03:52 DC Ondansetron HCl (Zofran) 4 mg PRN Q6HRS PRN 01/22/20 06:30 01/23/20 23:56 4 MG Piperacillin Sod/ Tazobactam Sod 3.375 gm/Sodium Chloride 50 ml @ 100 mls/hr Q6HRS 01/23/20 12:00 01/27/20 06:04 100 MLS/HR Potassium Chloride 40 meq/ Dextrose 1,020 ml @ 75 mls/hr [id number] 01/26/20 10:00 01/27/20 00:04 75 MLS/HR Prochlorperazine Edisylate (Compazine) 5 mg PACU PRN PRN 01/22/20 04:00 01/23/20 03:59 DC Ringer's Solution 1,000 ml @ 100 mls/hr Q10H 01/22/20 07:00 01/26/20 09:36 DC 01/25/20 11:47 100 MLS/HR Rocuronium [place] (Zemuron) 50 mg STK-MED ONCE 01/22/20 03:52 01/22/20 03:53 DC Sevoflurane (Ultane) 60 ml STK-MED ONCE 01/22/20 06:37 01/22/20 06:38 DC Sodium Chloride 1,000 ml @ 25 mls/hr Q24H 01/22/20 06:23 01/26/20 06:23 25 MLS/HR Sodium Chloride (Normal Saline Flush) 3 ml QSHIFT PRN 01/22/20 06:30 Succinylcholine Chloride (Anectine) 200 mg STK-MED ONCE 01/22/20 03:52 01/22/20 03:52 DC Throat Lozenges (Cepacol Sore Throat Lozenge) 1 rafi PRN Q2HRS PRN 01/22/20 12:30 01/22/20 12:32 1 RAFI Labs: Lab Laboratory Tests Test 01/27/20 06:30 White Blood Count 2.9 x10^3/uL (4.0-11.0) Red Blood Count 3.53 x10^6/uL (3.50-5.40) Hemoglobin 10.2 g/dL (12.0-15.5) Hematocrit 30.4 % (36.0-47.0) Mean Corpuscular Volume 86 fL (79-100) Mean Corpuscular Hemoglobin 29 pg (25-35) Mean Corpuscular Hemoglobin Concent 34 g/dL (31-37) Red Cell Distribution Width 14.0 % (11.5-14.5) Platelet Count 232 x10^3/uL (140-400) Neutrophils (%) (Auto) 65 % (31-73) Lymphocytes (%) (Auto) 18 % (24-48) Monocytes (%) (Auto) 13 % (0-9) Eosinophils (%) (Auto) 3 % (0-3) Basophils (%) (Auto) 1 % (0-3) Neutrophils # (Auto) 1.9 x10^3/uL (1.8-7.7) Lymphocytes # (Auto) 0.5 x10^3/uL (1.0-4.8) Monocytes # (Auto) 0.4 x10^3/uL (0.0-1.1) Eosinophils # (Auto) 0.1 x10^3/uL (0.0-0.7) Basophils # (Auto) 0.0 x10^3/uL (0.0-0.2) Sodium Level 140 mmol/L (136-145) Potassium Level 3.8 mmol/L (3.5-5.1) Chloride Level 106 mmol/L (98-107) Carbon Dioxide Level 24 mmol/L (21-32) Anion Gap 10 (6-14) Blood Urea Nitrogen 5 mg/dL (7-20) Creatinine 0.6 mg/dL (0.6-1.0) Estimated GFR (Cockcroft-Gault) 112.5 BUN/Creatinine Ratio 8 (6-20) Glucose Level 114 mg/dL (70-99) Calcium Level 8.7 mg/dL (8.5-10.1) Total Bilirubin 0.5 mg/dL (0.2-1.0) Aspartate Amino Transf (AST/SGOT) 15 U/L (15-37) Alanine Aminotransferase (ALT/SGPT) 15 U/L (14-59) Alkaline Phosphatase 32 U/L (46-116) Total Protein 6.0 g/dL (6.4-8.2) Albumin 2.9 g/dL (3.4-5.0) Albumin/Globulin Ratio 0.9 (1.0-1.7) Objective: Assessment: 1. Leukopenia, etiology unclear. The patient has had leukopenia in the past with extensive workup done, reported negative per patient. 2. Bowel perforation status post laparoscopically-assisted small bowel repair on . 3. Recent laparoscopic exploration, lysis of adhesions, ablation of endometriosis and drainage of ovarian cyst on 01/21/2020, done at surgical center as outpatient. 4. History of irritable bowel syndrome. 5. History of seasonal allergies. 6. History of yeast infection, treated recently. 7. History of ovarian cyst. Plan: Plan of Care Continue Zosyn currently. WBC improved slightly today to 2.9 The patient remains afebrile without any systemic symptoms at this time. We will likely transition to p.o. Augmentin soon Continue supportive care. ALEX SHIPLEY MD Jan 27, 2020 07:54
--- NOTE | 2020-01-27 08:48 | PN ---
DATE: 01/27/2020 SUBJECTIVE: The patient is resting, slightly propped up in bed, in no apparent distress. Her NG tube was removed yesterday. She has had bowel movement, passing gas, has been up and about. She is on a clear liquid diet. Denied any nausea or vomiting. Denied any abdominal pain. PHYSICAL EXAMINATION: GENERAL: When I saw her, she looked pale, no jaundice, cyanosis or thyromegaly. No jugular venous distention. No limb edema. VITAL SIGNS: Her heart rate was 61, blood pressure was 122/43, temperature 98.6, respiratory rate was 18 and oxygen saturation was 99%. HEAD, EYES, EARS, NOSE AND THROAT: Normocephalic, atraumatic. NECK: Supple. CARDIAC: Normal first and second heart sounds. No gallop, rub or murmur. CHEST: Clear to auscultation. No crepitation or rhonchi. ABDOMEN: Distended, soft, and nontender. There is no tenderness. No guarding or rigidity. No organomegaly. All hernial orifice intact. Bowel sounds normal. NEUROLOGIC: She is grossly intact. Her intake over the last 24 hours was incompletely recorded. LABORATORY DATA: Her lab work this morning showed a white cell count is up to 2900, hemoglobin 10, hematocrit 30, MCV 86 and platelet count 232,000. Her chemistry showed a serum sodium 140, potassium 3.8, chloride 106, bicarbonate 24, anion gap of 10, BUN 5, and creatinine 0.6. Estimated GFR was 112 mL per minute. Glucose 114, calcium was 8.7. Total bilirubin, AST, ALT, and alkaline phosphatase were normal. Total protein 6, albumin was 2.9. ASSESSMENT: 1. The patient is status post mall bowel repair. 2. Small bowel injury with bleeding and acute peritonitis. 3. Endometriosis. 4. Irritable bowel syndrome. 5. Postoperative paralytic ileus, improving The patient's NG tube was removed. She has had passing gas and has bowel movement and she is tolerating clear liquid diet. 6. She has leukopenia that is improving. Her white cell count is going up from 2.5 to 2.9. 7. Hypokalemia that also has improved. Her potassium this morning was 3.8. PLAN: Obviously to advance her diet. Discontinue the [employer] and hopefully discharge her home tomorrow. LUCHO LOPEZ MD DR: Darrick JOB#: [id number] / [id number]
--- NOTE | 2020-01-27 09:22 | PDOC ---
PROGRESS NOTES Date of Service DATE: 01/27/20 TIME: 09:18 Subjective Subjective feeling better, up in bed drinking liquids. +flatus and this am +BM also Objective Objective Vital Signs Date Time Temp Pulse Resp B/P (MAP) Pulse Ox O2 Delivery O2 Flow Rate FiO2 01/27/20 07:00 98.6 61 18 122/43 (69) 99 Room Air 98.6 01/24/20 02:54 2.0 Intake and Output 01/27/20 07:00 Intake Total 1660 ml Balance 1660 ml Intake Oral 490 ml IV Total 1170 ml # Voids 5 Physical Exam Physical Exam abd: soft, ND, all bandages c/d/i Plan Plan of Care POD#6 s/p operative laparoscopy with lysis of adhesions and vapo of endometriosis POD#5 s/p exploratory laparosocpy and repair of small bowel injury AF, +flaus and BM now and on liquids without problems leukocytosis with ID following, history of this in the past with no clear etiology also will change her post op appt pt has decided on proceeding with Mirena IUD for heavy menses, is on period now also and heavy Comment Review of Relevant I have reviewed the following items other notes, labs, vitals has been applied. Labs Laboratory Tests Test 01/26/20 03:40 01/27/20 06:30 White Blood Count 2.5 x10^3/uL (4.0-11.0) 2.9 x10^3/uL (4.0-11.0) Red Blood Count 3.27 x10^6/uL (3.50-5.40) 3.53 x10^6/uL (3.50-5.40) Hemoglobin 9.6 g/dL (12.0-15.5) 10.2 g/dL (12.0-15.5) Hematocrit 28.4 % (36.0-47.0) 30.4 % (36.0-47.0) Mean Corpuscular Volume 87 fL (79-100) 86 fL (79-100) Mean Corpuscular Hemoglobin 29 pg (25-35) 29 pg (25-35) Mean Corpuscular Hemoglobin Concent 34 g/dL (31-37) 34 g/dL (31-37) Red Cell Distribution Width 13.8 % (11.5-14.5) 14.0 % (11.5-14.5) Platelet Count 179 x10^3/uL (140-400) 232 x10^3/uL (140-400) Segmented Neutrophils % 53 % (35-66) Band Neutrophils % 10 % (0-9) Lymphocytes % 27 % (24-48) Monocytes % 6 % (0-10) Eosinophils % 4 % (0-5) Platelet Estimate Adequate (ADEQUATE) Sodium Level 142 mmol/L (136-145) 140 mmol/L (136-145) Potassium Level 3.4 mmol/L (3.5-5.1) 3.8 mmol/L (3.5-5.1) Chloride Level 107 mmol/L (98-107) 106 mmol/L (98-107) Carbon Dioxide Level 21 mmol/L (21-32) 24 mmol/L (21-32) Anion Gap 14 (6-14) 10 (6-14) Blood Urea Nitrogen 5 mg/dL (7-20) 5 mg/dL (7-20) Creatinine 0.6 mg/dL (0.6-1.0) 0.6 mg/dL (0.6-1.0) Estimated GFR (Cockcroft-Gault) 112.5 112.5 BUN/Creatinine Ratio 8 (6-20) 8 (6-20) Glucose Level 75 mg/dL (70-99) 114 mg/dL (70-99) Calcium Level 8.1 mg/dL (8.5-10.1) 8.7 mg/dL (8.5-10.1) Total Bilirubin 0.5 mg/dL (0.2-1.0) 0.5 mg/dL (0.2-1.0) Aspartate Amino Transf (AST/SGOT) 12 U/L (15-37) 15 U/L (15-37) Alanine Aminotransferase (ALT/SGPT) 13 U/L (14-59) 15 U/L (14-59) Alkaline Phosphatase 27 U/L (46-116) 32 U/L (46-116) Total Protein 5.3 g/dL (6.4-8.2) 6.0 g/dL (6.4-8.2) Albumin 2.4 g/dL (3.4-5.0) 2.9 g/dL (3.4-5.0) Albumin/Globulin Ratio 0.8 (1.0-1.7) 0.9 (1.0-1.7) Neutrophils (%) (Auto) 65 % (31-73) Lymphocytes (%) (Auto) 18 % (24-48) Monocytes (%) (Auto) 13 % (0-9) Eosinophils (%) (Auto) 3 % (0-3) Basophils (%) (Auto) 1 % (0-3) Neutrophils # (Auto) 1.9 x10^3/uL (1.8-7.7) Lymphocytes # (Auto) 0.5 x10^3/uL (1.0-4.8) Monocytes # (Auto) 0.4 x10^3/uL (0.0-1.1) Eosinophils # (Auto) 0.1 x10^3/uL (0.0-0.7) Basophils # (Auto) 0.0 x10^3/uL (0.0-0.2) Laboratory Tests Test 01/27/20 06:30 White Blood Count 2.9 x10^3/uL (4.0-11.0) Red Blood Count 3.53 x10^6/uL (3.50-5.40) Hemoglobin 10.2 g/dL (12.0-15.5) Hematocrit 30.4 % (36.0-47.0) Mean Corpuscular Volume 86 fL (79-100) Mean Corpuscular Hemoglobin 29 pg (25-35) Mean Corpuscular Hemoglobin Concent 34 g/dL (31-37) Red Cell Distribution Width 14.0 % (11.5-14.5) Platelet Count 232 x10^3/uL (140-400) Neutrophils (%) (Auto) 65 % (31-73) Lymphocytes (%) (Auto) 18 % (24-48) Monocytes (%) (Auto) 13 % (0-9) Eosinophils (%) (Auto) 3 % (0-3) Basophils (%) (Auto) 1 % (0-3) Neutrophils # (Auto) 1.9 x10^3/uL (1.8-7.7) Lymphocytes # (Auto) 0.5 x10^3/uL (1.0-4.8) Monocytes # (Auto) 0.4 x10^3/uL (0.0-1.1) Eosinophils # (Auto) 0.1 x10^3/uL (0.0-0.7) Basophils # (Auto) 0.0 x10^3/uL (0.0-0.2) Sodium Level 140 mmol/L (136-145) Potassium Level 3.8 mmol/L (3.5-5.1) Chloride Level 106 mmol/L (98-107) Carbon Dioxide Level 24 mmol/L (21-32) Anion Gap 10 (6-14) Blood Urea Nitrogen 5 mg/dL (7-20) Creatinine 0.6 mg/dL (0.6-1.0) Estimated GFR (Cockcroft-Gault) 112.5 BUN/Creatinine Ratio 8 (6-20) Glucose Level 114 mg/dL (70-99) Calcium Level 8.7 mg/dL (8.5-10.1) Total Bilirubin 0.5 mg/dL (0.2-1.0) Aspartate Amino Transf (AST/SGOT) 15 U/L (15-37) Alanine Aminotransferase (ALT/SGPT) 15 U/L (14-59) Alkaline Phosphatase 32 U/L (46-116) Total Protein 6.0 g/dL (6.4-8.2) Albumin 2.9 g/dL (3.4-5.0) Albumin/Globulin Ratio 0.9 (1.0-1.7) Medications Current Medications Cefoxitin Sodium (Mefoxin) 2 gm PREOP PRN PRN IVP PREOP Last administered on 01/22/20at 05:17; Start 01/22/20 at 04:00; Stop 01/24/20 at 03:59; Status DC Neostigmine [place] (Neostigmine Methylsulfate) 5 mg STK-MED ONCE .ROUTE ; Start 01/22/20 at 03:52; Stop 01/22/20 at 03:52; Status DC Succinylcholine Chloride (Anectine) 200 mg STK-MED ONCE .ROUTE ; Start 01/22/20 at 03:52; Stop 01/22/20 at 03:52; Status DC Rocuronium [place] (Zemuron) 50 mg STK-MED ONCE .ROUTE ; Start 01/22/20 at 03:52; Stop 01/22/20 at 03:53; Status DC Fentanyl Citrate (Fentanyl 2ml Vial) 100 mcg STK-MED ONCE .ROUTE ; Start 01/22/20 at 03:52; Stop 01/22/20 at 03:53; Status DC Midazolam HCl (Versed) 2 mg STK-MED ONCE .ROUTE ; Start 01/22/20 at 03:52; Stop 01/22/20 at 03:53; Status DC Glycopyrrolate (Robinul) 1 mg STK-MED ONCE .ROUTE ; Start 01/22/20 at 03:54; Stop 01/22/20 at 03:54; Status DC Ondansetron HCl (Zofran) 4 mg PRN Q6HRS PRN IV NAUSEA/VOMITING; Start 01/22/20 at 04:00; Stop 01/23/20 at 03:59; Status DC Fentanyl Citrate (Fentanyl 2ml Vial) 25 mcg PRN Q5MIN PRN IV MILD PAIN 1-3 Last administered on 01/22/20at 06:53; Start 01/22/20 at 04:00; Stop 01/23/20 at 03:59; Status DC Fentanyl Citrate (Fentanyl 2ml Vial) 50 mcg PRN Q5MIN PRN IV MODERATE TO SEVERE PAIN; Start 01/22/20 at 04:00; Stop 01/23/20 at 03:59; Status DC Morphine Sulfate (Morphine Sulfate) 1 mg PRN Q10MIN PRN IV SEVERE PAIN 7-10; Start 01/22/20 at 04:00; Stop 01/23/20 at 03:59; Status DC Ringer's Solution 1,000 ml @ 30 mls/hr Q24H IV ; Start 01/22/20 at 04:00; Stop 01/22/20 at 15:59; Status DC Hydromorphone HCl (Dilaudid) 0.5 mg PRN Q10MIN PRN IV SEV PAIN, Second choice; Start 01/22/20 at 04:00; Stop 01/23/20 at 03:59; Status DC Prochlorperazine Edisylate (Compazine) 5 mg PACU PRN PRN IV NAUSEA, MRX1; Start 01/22/20 at 04:00; Stop 01/23/20 at 03:59; Status DC Bupivacaine HCl (Sensorcaine Mpf 0.5%) 30 ml STK-MED ONCE .ROUTE Last administered on 01/22/20at 05:26; Start 01/22/20 at 04:29; Stop 01/22/20 at 04:29; Status DC Fentanyl Citrate (Fentanyl 2ml Vial) 100 mcg STK-MED ONCE .ROUTE ; Start 01/22/20 at 05:41; Stop 01/22/20 at 05:41; Status DC Ephedrine Sulfate (ePHEDrine PF IN SALINE SYRINGE) 50 mg STK-MED ONCE IV ; Start 01/22/20 at 05:57; Stop 01/22/20 at 05:57; Status DC Cefoxitin Sodium (Mefoxin) 1 gm Q6H IVP Last administered on 01/22/20at 23:31; Start 01/22/20 at 11:00; Stop 01/22/20 at 23:01; Status DC Enoxaparin Sodium (Lovenox 40mg Syringe) 40 mg QHS SQ Last administered on 01/26/20at 20:52; Start 01/22/20 at 21:00 Sodium Chloride (Normal Saline Flush) 3 ml QSHIFT PRN IV AFTER MEDS AND BLOOD DRAWS; Start 01/22/20 at 06:30 Ringer's Solution 1,000 ml @ 100 mls/hr Q10H IV Last administered on 01/25/20at 11:47; Start 01/22/20 at 07:00; Stop 01/26/20 at 09:36; Status DC Naloxone HCl (Narcan) 0.4 mg PRN Q2MIN PRN IV SEE INSTRUCTIONS; Start 01/22/20 at 06:30 Sodium Chloride 1,000 ml @ 25 mls/hr Q24H IV Last administered on 01/26/20at 06:23; Start 01/22/20 at 06:23 Morphine Sulfate 30 ml @ 0 mls/hr CONT PRN PRN IV PER PROTOCOL Last administered on 01/22/20at 07:07; Start 01/22/20 at 06:30; Stop 01/22/20 at 18:15; Status DC Ondansetron HCl (Zofran) 4 mg PRN Q6HRS PRN IVP NAUESA, 1ST CHOICE Last administered on 01/23/20at 23:56; Start 01/22/20 at 06:30 Sevoflurane (Ultane) 60 ml STK-MED ONCE IH ; Start 01/22/20 at 06:37; Stop 01/22/20 at 06:38; Status DC Fentanyl Citrate (Fentanyl 2ml Vial) 100 mcg STK-MED ONCE .ROUTE ; Start 01/22/20 at 06:47; Stop 01/22/20 at 06:48; Status DC Throat Lozenges (Cepacol Sore Throat Lozenge) 1 nikolas PRN Q2HRS PRN PO SORE THROAT Last administered on 01/22/20at 12:32; Start 01/22/20 at 12:30 Hydromorphone HCl 30 ml @ 0 mls/hr CONT PRN PRN IV PER PROTOCOL Last administered on 01/25/20at 12:05; Start 01/22/20 at 18:15 Piperacillin Sod/ Tazobactam Sod 3.375 gm/Sodium Chloride 50 ml @ 100 mls/hr Q6HRS IV Last administered on 01/27/20at 06:04; Start 01/23/20 at 12:00 Acetaminophen (Tylenol Supp) 650 mg PRN Q6HRS PRN [place] MILD PAIN / TEMP > 100.3'F Last administered on 01/23/20at 21:12; Start 01/23/20 at 10:15 Lidocaine (Lidoderm) 1 patch DAILY TD Last administered on 01/26/20at 07:59; Start 01/24/20 at 13:00 Miscellaneous (Lidoderm Patch Removal) 1 ea QHS MC Last administered on 01/26/20at 20:53; Start 01/24/20 at 21:00 Diphenhydramine HCl (Benadryl) 25 mg PRN Q6HRS PRN IVP ITCHING Last administered on 01/24/20at 19:48; Start 01/24/20 at 19:00 Potassium Chloride 40 meq/ Dextrose 1,020 ml @ 75 mls/hr [id number] IV Last administered on 01/27/20at 00:04; Start 01/26/20 at 10:00 Lactobacillus Rhamnosus (Culturelle) 1 cap BID PO ; Start 01/26/20 at 21:00 Active Scripts Active Reported Probiotic (Lactobacillus Combo No.10) 1 Each Capsule 1 Tab PO DAILY 30 Days Flonase Allergy Relief (Fluticasone Propionate) 9.9 Ml [place].susp 2 Sprays NS DAILY Isabel-D 24 Hour Tablet (Fexofenadine/Pseudoephedrine) 1 Each Tab.er.24h 1 Tab PO DAILY 30 Days Vitals/I & O Vital Sign - Last 24 Hours 01/26/20 01/26/20 01/26/20 01/26/20 11:00 15:00 19:00 20:00 Temp 98.8 98.5 98.7 98.8 98.5 98.7 Pulse 66 60 55 Resp 18 18 18 B/P (MAP) 122/58 (79) 129/75 (93) 128/68 (88) Pulse Ox 99 98 99 O2 Delivery Room Air Room Air Room Air Room Air 01/26/20 01/27/20 01/27/20 23:00 03:22 07:00 Temp 97.9 98.9 98.6 97.9 98.9 98.6 Pulse 58 61 61 Resp 14 18 18 B/P (MAP) 115/63 (80) 113/66 (82) 122/43 (69) Pulse Ox 97 96 99 O2 Delivery Room Air Room Air Room Air Intake and Output 01/26/20 01/26/20 01/27/20 15:00 23:00 07:00 Intake Total 200 ml 1460 ml Balance 200 ml 1460 ml Justifications for Admission Other Justification ANA MENDOZA MD Jan 27, 2020 09:22
--- NOTE | 2020-01-27 09:31 | NUR ---
SW following. Discussed with RN, pt from home with and children, room air, clear liquid diet. Pt on IV zpsyn, SAW FEEDER. Pt is COVID-19 negative. RN advised no SW needs at this time. SW will continue to follow for discharge planning needs.
[2020-01-27] MEDS: LACTOBACILLUS RHAMNOSUS GG 1 CAPSULE. PO SCH ×2 (09:40→20:52)
[2020-01-27 11:00] VITALS: BP 117/52
[2020-01-27] MEDS: LIDOCAINE (700MG/PATCH) PATCH. TD SCH (12:15)
[2020-01-27] MEDS: HYDROcodone/APAP 5/325MG 1 TAB TABLET PO PRN ×3 (12:47→22:41)
[2020-01-27 15:00] VITALS: BP 122/60
[2020-01-27 19:00] VITALS: BP 121/67
--- NOTE | 2020-01-27 19:34 | PDOC ---
SURGICAL PROGRESS NOTE DATE: 01/27/20 TIME: 19:32 Subjective Pt feels better, jordi PO, although some bloating with eating. Passing stools. Vital Signs Vital Signs Date Time Temp Pulse Resp B/P (MAP) Pulse Ox O2 Delivery O2 Flow Rate FiO2 01/27/20 18:36 16 Room Air 01/27/20 15:00 98.0 48 122/60 (80) 100 98.0 I&O Intake and Output 01/27/20 07:00 Intake Total 1660 ml Balance 1660 ml Intake Oral 490 ml IV Total 1170 ml # Voids 5 General: Alert, Oriented X3, Cooperative, No acute distress Abdomen: Soft, No tenderness, Other (incision c/d/i) Labs Laboratory Tests Test 01/26/20 03:40 01/27/20 06:30 White Blood Count 2.5 x10^3/uL (4.0-11.0) 2.9 x10^3/uL (4.0-11.0) Red Blood Count 3.27 x10^6/uL (3.50-5.40) 3.53 x10^6/uL (3.50-5.40) Hemoglobin 9.6 g/dL (12.0-15.5) 10.2 g/dL (12.0-15.5) Hematocrit 28.4 % (36.0-47.0) 30.4 % (36.0-47.0) Mean Corpuscular Volume 87 fL (79-100) 86 fL (79-100) Mean Corpuscular Hemoglobin 29 pg (25-35) 29 pg (25-35) Mean Corpuscular Hemoglobin Concent 34 g/dL (31-37) 34 g/dL (31-37) Red Cell Distribution Width 13.8 % (11.5-14.5) 14.0 % (11.5-14.5) Platelet Count 179 x10^3/uL (140-400) 232 x10^3/uL (140-400) Segmented Neutrophils % 53 % (35-66) Band Neutrophils % 10 % (0-9) Lymphocytes % 27 % (24-48) Monocytes % 6 % (0-10) Eosinophils % 4 % (0-5) Platelet Estimate Adequate (ADEQUATE) Sodium Level 142 mmol/L (136-145) 140 mmol/L (136-145) Potassium Level 3.4 mmol/L (3.5-5.1) 3.8 mmol/L (3.5-5.1) Chloride Level 107 mmol/L (98-107) 106 mmol/L (98-107) Carbon Dioxide Level 21 mmol/L (21-32) 24 mmol/L (21-32) Anion Gap 14 (6-14) 10 (6-14) Blood Urea Nitrogen 5 mg/dL (7-20) 5 mg/dL (7-20) Creatinine 0.6 mg/dL (0.6-1.0) 0.6 mg/dL (0.6-1.0) Estimated GFR (Cockcroft-Gault) 112.5 112.5 BUN/Creatinine Ratio 8 (6-20) 8 (6-20) Glucose Level 75 mg/dL (70-99) 114 mg/dL (70-99) Calcium Level 8.1 mg/dL (8.5-10.1) 8.7 mg/dL (8.5-10.1) Total Bilirubin 0.5 mg/dL (0.2-1.0) 0.5 mg/dL (0.2-1.0) Aspartate Amino Transf (AST/SGOT) 12 U/L (15-37) 15 U/L (15-37) Alanine Aminotransferase (ALT/SGPT) 13 U/L (14-59) 15 U/L (14-59) Alkaline Phosphatase 27 U/L (46-116) 32 U/L (46-116) Total Protein 5.3 g/dL (6.4-8.2) 6.0 g/dL (6.4-8.2) Albumin 2.4 g/dL (3.4-5.0) 2.9 g/dL (3.4-5.0) Albumin/Globulin Ratio 0.8 (1.0-1.7) 0.9 (1.0-1.7) Neutrophils (%) (Auto) 65 % (31-73) Lymphocytes (%) (Auto) 18 % (24-48) Monocytes (%) (Auto) 13 % (0-9) Eosinophils (%) (Auto) 3 % (0-3) Basophils (%) (Auto) 1 % (0-3) Neutrophils # (Auto) 1.9 x10^3/uL (1.8-7.7) Lymphocytes # (Auto) 0.5 x10^3/uL (1.0-4.8) Monocytes # (Auto) 0.4 x10^3/uL (0.0-1.1) Eosinophils # (Auto) 0.1 x10^3/uL (0.0-0.7) Basophils # (Auto) 0.0 x10^3/uL (0.0-0.2) Laboratory Tests Test 01/27/20 06:30 White Blood Count 2.9 x10^3/uL (4.0-11.0) Red Blood Count 3.53 x10^6/uL (3.50-5.40) Hemoglobin 10.2 g/dL (12.0-15.5) Hematocrit 30.4 % (36.0-47.0) Mean Corpuscular Volume 86 fL (79-100) Mean Corpuscular Hemoglobin 29 pg (25-35) Mean Corpuscular Hemoglobin Concent 34 g/dL (31-37) Red Cell Distribution Width 14.0 % (11.5-14.5) Platelet Count 232 x10^3/uL (140-400) Neutrophils (%) (Auto) 65 % (31-73) Lymphocytes (%) (Auto) 18 % (24-48) Monocytes (%) (Auto) 13 % (0-9) Eosinophils (%) (Auto) 3 % (0-3) Basophils (%) (Auto) 1 % (0-3) Neutrophils # (Auto) 1.9 x10^3/uL (1.8-7.7) Lymphocytes # (Auto) 0.5 x10^3/uL (1.0-4.8) Monocytes # (Auto) 0.4 x10^3/uL (0.0-1.1) Eosinophils # (Auto) 0.1 x10^3/uL (0.0-0.7) Basophils # (Auto) 0.0 x10^3/uL (0.0-0.2) Sodium Level 140 mmol/L (136-145) Potassium Level 3.8 mmol/L (3.5-5.1) Chloride Level 106 mmol/L (98-107) Carbon Dioxide Level 24 mmol/L (21-32) Anion Gap 10 (6-14) Blood Urea Nitrogen 5 mg/dL (7-20) Creatinine 0.6 mg/dL (0.6-1.0) Estimated GFR (Cockcroft-Gault) 112.5 BUN/Creatinine Ratio 8 (6-20) Glucose Level 114 mg/dL (70-99) Calcium Level 8.7 mg/dL (8.5-10.1) Total Bilirubin 0.5 mg/dL (0.2-1.0) Aspartate Amino Transf (AST/SGOT) 15 U/L (15-37) Alanine Aminotransferase (ALT/SGPT) 15 U/L (14-59) Alkaline Phosphatase 32 U/L (46-116) Total Protein 6.0 g/dL (6.4-8.2) Albumin 2.9 g/dL (3.4-5.0) Albumin/Globulin Ratio 0.9 (1.0-1.7) Problem List s/p bowel repair ADAT should be able to d/c home in AM Justicifation of Admission Dx: Justifications for Admission: Justification of Admission Dx: Yes Chronic Renal Failure: Severe Infection MURRAY STOREY MD Jan 27, 2020 19:34
[2020-01-27] MEDS: ENOXAPARIN 40 MG/0.4 ML SYRINGE. SQ SCH (20:52)
[2020-01-27] MEDS: PATCH REMOVAL. MC SCH (20:52)
[2020-01-27] MEDS: DOCUSATE SODIUM 100 MG CAPSULE. PO SCH (20:52)
[2020-01-27 23:00] VITALS: BP 115/60
[2020-01-28] MEDS: PIPERACILLIN/TAZOBACTAM 3.375 GM in IV NORMAL SALINE 50ML 50 ML IV SCH ×2 (00:02→05:32)
[2020-01-28 03:00] VITALS: BP 108/55
[2020-01-28] MEDS: HYDROcodone/APAP 5/325MG 1 TAB TABLET PO PRN (05:32)
[2020-01-28] MEDS: IV NORMAL SALINE 1000ML BAG 1,000 ML IV SCH (05:32)
[2020-01-28 07:00] VITALS: BP 110/60
[2020-01-28 07:31] LABS: HEMATOCRIT 31.4 % (36.0-47.0); HEMOGLOBIN 10.8 g/dL (12.0-15.5); RED BLOOD COUNT 3.67 x10^6/uL (3.50-5.40); WHITE BLOOD COUNT 3.6 x10^3/uL (4.0-11.0)
[2020-01-28 07:52] LABS: CALCIUM 8.9 mg/dL (8.5-10.1); CREATININE 0.7 mg/dL (0.6-1.0); GFR 94.2; POTASSIUM 3.8 mmol/L (3.5-5.1)
--- NOTE | 2020-01-28 08:24 | PDOC ---
Infectious Disease Note Subjective: Subjective Patient doing well no f/n/v/d Vital Signs: Vital Signs Vital Signs Date Time Temp Pulse Resp B/P (MAP) Pulse Ox O2 Delivery O2 Flow Rate FiO2 01/28/20 07:00 98.0 51 20 110/60 (77) 97 Room Air 98.0 Physical Exam: PHYSICAL EXAM GENERAL: Alert, oriented, pleasant female, lying in bed comfortably, in no acute distress. HEENT: Normocephalic, atraumatic. Anicteric. Dentition fair. No thrush. NECK: Supple. LUNGS: Clear bilaterally. No wheezing. HEART: S1, S2. No gallops or murmurs. ABDOMEN: Firm, nondistended, Dressing in place, intact, not taken down, dr bazanBS + Mild diffuse tenderness. No rebound,no guarding. NEUROLOGIC: Alert and oriented x 3, grossly nonfocal. PSYCHIATRIC: Cooperative, appropriate mood and affect. DERMATOLOGIC: Warm, dry. No generalized rash. MUSCULOSKELETAL: No joint swelling. Medications: Inpatient Meds: Current Medications Medications (Trade) Dose Ordered Sig/Dewayne Start Time Stop Time Status Last Admin Dose Admin Acetaminophen (Tylenol Supp) 650 mg PRN Q6HRS PRN 01/23/20 10:15 01/23/20 21:12 650 MG Acetaminophen/ Hydrocodone Bitart (Lortab 5/325) 1 tab PRN Q6HRS PRN 01/27/20 12:30 01/28/20 05:32 1 TAB Bupivacaine HCl (Sensorcaine Mpf 0.5%) 30 ml STK-MED ONCE 01/22/20 04:29 01/22/20 04:29 DC 01/22/20 05:26 30 ML Cefoxitin Sodium (Mefoxin) 1 gm Q6H 01/22/20 11:00 01/22/20 23:01 DC 01/22/20 23:31 1 GM Diphenhydramine HCl (Benadryl) 25 mg PRN Q6HRS PRN 01/24/20 19:00 01/24/20 19:48 25 MG Docusate Sodium (Colace) 100 mg BID 01/27/20 21:00 01/27/20 20:52 100 MG Enoxaparin Sodium (Lovenox 40mg Syringe) 40 mg QHS 01/22/20 21:00 01/27/20 20:52 40 MG Ephedrine Sulfate (ePHEDrine PF IN SALINE SYRINGE) 50 mg STK-MED ONCE 01/22/20 05:57 01/22/20 05:57 DC Fentanyl Citrate (Fentanyl 2ml Vial) 100 mcg STK-MED ONCE 01/22/20 06:47 01/22/20 06:48 DC Glycopyrrolate (Robinul) 1 mg STK-MED ONCE 01/22/20 03:54 01/22/20 03:54 DC Hydromorphone HCl 30 ml @ 0 mls/hr CONT PRN PRN 01/22/20 18:15 01/27/20 12:26 DC 01/25/20 12:05 0 MLS/HR Hydromorphone HCl (Dilaudid) 0.5 mg PRN Q10MIN PRN 01/22/20 04:00 01/23/20 03:59 DC Lactobacillus Rhamnosus (Culturelle) 1 cap BID 01/26/20 21:00 01/27/20 20:52 1 CAP Lidocaine (Lidoderm) 1 patch DAILY 01/24/20 13:00 01/27/20 12:15 1 PATCH Midazolam HCl (Versed) 2 mg STK-MED ONCE 01/22/20 03:52 01/22/20 03:53 DC Miscellaneous (Lidoderm Patch Removal) 1 ea QHS 01/24/20 21:00 01/27/20 20:52 1 EA Morphine Sulfate 30 ml @ 0 mls/hr CONT PRN PRN 01/22/20 06:30 01/22/20 18:15 DC 01/22/20 07:07 0 MLS/HR Morphine Sulfate (Morphine Sulfate) 1 mg PRN Q10MIN PRN 01/22/20 04:00 01/23/20 03:59 DC Naloxone HCl (Narcan) 0.4 mg PRN Q2MIN PRN 01/22/20 06:30 Neostigmine [place] (Neostigmine Methylsulfate) 5 mg STK-MED ONCE 01/22/20 03:52 01/22/20 03:52 DC Ondansetron HCl (Zofran) 4 mg PRN Q6HRS PRN 01/22/20 06:30 01/23/20 23:56 4 MG Piperacillin Sod/ Tazobactam Sod 3.375 gm/Sodium Chloride 50 ml @ 100 mls/hr Q6HRS 01/23/20 12:00 01/28/20 05:32 100 MLS/HR Potassium Chloride 40 meq/ Dextrose 1,020 ml @ 75 mls/hr [id number] 01/26/20 10:00 01/27/20 17:17 DC 01/27/20 00:04 75 MLS/HR Prochlorperazine Edisylate (Compazine) 5 mg PACU PRN PRN 01/22/20 04:00 01/23/20 03:59 DC Ringer's Solution 1,000 ml @ 100 mls/hr Q10H 01/22/20 07:00 01/26/20 09:36 DC 01/25/20 11:47 100 MLS/HR Rocuronium [place] (Zemuron) 50 mg STK-MED ONCE 01/22/20 03:52 01/22/20 03:53 DC Sevoflurane (Ultane) 60 ml STK-MED ONCE 01/22/20 06:37 01/22/20 06:38 DC Sodium Chloride 1,000 ml @ 25 mls/hr Q24H 01/22/20 06:23 01/26/20 06:23 25 MLS/HR Sodium Chloride (Normal Saline Flush) 3 ml QSHIFT PRN 01/22/20 06:30 Succinylcholine Chloride (Anectine) 200 mg STK-MED ONCE 01/22/20 03:52 01/22/20 03:52 DC Throat Lozenges (Cepacol Sore Throat Lozenge) 1 rafi PRN Q2HRS PRN 01/22/20 12:30 01/22/20 12:32 1 RAFI Labs: Lab Laboratory Tests Test 01/28/20 06:30 White Blood Count 3.6 x10^3/uL (4.0-11.0) Red Blood Count 3.67 x10^6/uL (3.50-5.40) Hemoglobin 10.8 g/dL (12.0-15.5) Hematocrit 31.4 % (36.0-47.0) Mean Corpuscular Volume 86 fL (79-100) Mean Corpuscular Hemoglobin 30 pg (25-35) Mean Corpuscular Hemoglobin Concent 35 g/dL (31-37) Red Cell Distribution Width 14.0 % (11.5-14.5) Platelet Count 256 x10^3/uL (140-400) Sodium Level 142 mmol/L (136-145) Potassium Level 3.8 mmol/L (3.5-5.1) Chloride Level 106 mmol/L (98-107) Carbon Dioxide Level 24 mmol/L (21-32) Anion Gap 12 (6-14) Blood Urea Nitrogen 6 mg/dL (7-20) Creatinine 0.7 mg/dL (0.6-1.0) Estimated GFR (Cockcroft-Gault) 94.2 Glucose Level 87 mg/dL (70-99) Calcium Level 8.9 mg/dL (8.5-10.1) Objective: Assessment: 1. Leukopenia, etiology unclear. The patient has had leukopenia in the past with extensive workup done, reported negative per patient. WBC improving,today to 3.6 2. Bowel perforation status post laparoscopically-assisted small bowel repair on . 3. Recent laparoscopic exploration, lysis of adhesions, ablation of endometriosis and drainage of ovarian cyst on 01/21/2020, done at surgical center as outpatient. 4. History of irritable bowel syndrome. 5. History of seasonal allergies. 6. History of yeast infection, treated recently. 7. History of ovarian cyst. Plan: Plan of Care DC Zosyn Can dc from ID standpoint on po augmentin for 5 days ALEX SHIPLEY MD Jan 28, 2020 08:24
[2020-01-28] MEDS: LIDOCAINE (700MG/PATCH) PATCH. TD SCH (09:00)
[2020-01-28] MEDS ORDERED: AMOXICILLIN/K CLAV 875/125MG TABLET. PO SCH (09:00)
[2020-01-28] MEDS ORDERED: AMOX1TAB61 PO (09:26)
[2020-01-28] MEDS ORDERED: FLUC150T PO (09:32)
--- NOTE | 2020-01-28 09:37 | NUR ---
SW following. Discussed with RN and Dr. Fernandez, room air, GI soft. Pt is being discharged home today with self care. No SW needs.
--- NOTE | 2020-01-28 10:25 | PDOC ---
SURGICAL PROGRESS NOTE DATE: 01/28/20 TIME: 10:24 Subjective Pt feels better, jordi diet, passing stools Vital Signs Vital Signs Date Time Temp Pulse Resp B/P (MAP) Pulse Ox O2 Delivery O2 Flow Rate FiO2 01/28/20 07:00 98.0 51 20 110/60 (77) 97 Room Air 98.0 I&O Intake and Output 01/28/20 07:00 Intake Total 1870 ml Balance 1870 ml Intake Oral 1570 ml IV Total 300 ml # Voids 6 General: Alert, Oriented X3, Cooperative, No acute distress Abdomen: Soft, No tenderness Labs Laboratory Tests Test 01/27/20 06:30 01/28/20 06:30 White Blood Count 2.9 x10^3/uL (4.0-11.0) 3.6 x10^3/uL (4.0-11.0) Red Blood Count 3.53 x10^6/uL (3.50-5.40) 3.67 x10^6/uL (3.50-5.40) Hemoglobin 10.2 g/dL (12.0-15.5) 10.8 g/dL (12.0-15.5) Hematocrit 30.4 % (36.0-47.0) 31.4 % (36.0-47.0) Mean Corpuscular Volume 86 fL (79-100) 86 fL (79-100) Mean Corpuscular Hemoglobin 29 pg (25-35) 30 pg (25-35) Mean Corpuscular Hemoglobin Concent 34 g/dL (31-37) 35 g/dL (31-37) Red Cell Distribution Width 14.0 % (11.5-14.5) 14.0 % (11.5-14.5) Platelet Count 232 x10^3/uL (140-400) 256 x10^3/uL (140-400) Neutrophils (%) (Auto) 65 % (31-73) Lymphocytes (%) (Auto) 18 % (24-48) Monocytes (%) (Auto) 13 % (0-9) Eosinophils (%) (Auto) 3 % (0-3) Basophils (%) (Auto) 1 % (0-3) Neutrophils # (Auto) 1.9 x10^3/uL (1.8-7.7) Lymphocytes # (Auto) 0.5 x10^3/uL (1.0-4.8) Monocytes # (Auto) 0.4 x10^3/uL (0.0-1.1) Eosinophils # (Auto) 0.1 x10^3/uL (0.0-0.7) Basophils # (Auto) 0.0 x10^3/uL (0.0-0.2) Sodium Level 140 mmol/L (136-145) 142 mmol/L (136-145) Potassium Level 3.8 mmol/L (3.5-5.1) 3.8 mmol/L (3.5-5.1) Chloride Level 106 mmol/L (98-107) 106 mmol/L (98-107) Carbon Dioxide Level 24 mmol/L (21-32) 24 mmol/L (21-32) Anion Gap 10 (6-14) 12 (6-14) Blood Urea Nitrogen 5 mg/dL (7-20) 6 mg/dL (7-20) Creatinine 0.6 mg/dL (0.6-1.0) 0.7 mg/dL (0.6-1.0) Estimated GFR (Cockcroft-Gault) 112.5 94.2 BUN/Creatinine Ratio 8 (6-20) Glucose Level 114 mg/dL (70-99) 87 mg/dL (70-99) Calcium Level 8.7 mg/dL (8.5-10.1) 8.9 mg/dL (8.5-10.1) Total Bilirubin 0.5 mg/dL (0.2-1.0) Aspartate Amino Transf (AST/SGOT) 15 U/L (15-37) Alanine Aminotransferase (ALT/SGPT) 15 U/L (14-59) Alkaline Phosphatase 32 U/L (46-116) Total Protein 6.0 g/dL (6.4-8.2) Albumin 2.9 g/dL (3.4-5.0) Albumin/Globulin Ratio 0.9 (1.0-1.7) Laboratory Tests Test 01/28/20 06:30 White Blood Count 3.6 x10^3/uL (4.0-11.0) Red Blood Count 3.67 x10^6/uL (3.50-5.40) Hemoglobin 10.8 g/dL (12.0-15.5) Hematocrit 31.4 % (36.0-47.0) Mean Corpuscular Volume 86 fL (79-100) Mean Corpuscular Hemoglobin 30 pg (25-35) Mean Corpuscular Hemoglobin Concent 35 g/dL (31-37) Red Cell Distribution Width 14.0 % (11.5-14.5) Platelet Count 256 x10^3/uL (140-400) Sodium Level 142 mmol/L (136-145) Potassium Level 3.8 mmol/L (3.5-5.1) Chloride Level 106 mmol/L (98-107) Carbon Dioxide Level 24 mmol/L (21-32) Anion Gap 12 (6-14) Blood Urea Nitrogen 6 mg/dL (7-20) Creatinine 0.7 mg/dL (0.6-1.0) Estimated GFR (Cockcroft-Gault) 94.2 Glucose Level 87 mg/dL (70-99) Calcium Level 8.9 mg/dL (8.5-10.1) Problem List s/p bowel repair OK to d/c home f/u in two weeks Justicifation of Admission Dx: Justifications for Admission: Justification of Admission Dx: Yes Chronic Renal Failure: Severe Infection MURRAY STOREY MD Jan 28, 2020 10:25
--- NOTE | 2020-01-28 10:26 | DS ---
DATE OF DISCHARGE: 01/28/2020 HOSPITAL COURSE: The patient is a 39-year-old female patient who apparently underwent laparoscopic exploration, lysis of adhesions, ablation of endometriosis and drainage of an ovarian cyst on the day before admission at an outside facility, had some bloating and took Gas-X, subsequently worsened with pain in the right lower quadrant and radiating to upper abdomen and back. Pain did not relent associated nausea, seen at [facility] and transferred to [facility]. She was found to have basically pneumoperitoneum and contrast extraluminal and inflammation of the bowel and she underwent laparoscopic assisted small bowel repair. She was found to have pneumoperitoneum, hemoperitoneum, fibrinous changes, and small bowel wound in mid distal small bowel, 1 cm diameter. No bleeding identified. She has some ecchymosis in the small bowel mesentery. Normal stomach, gallbladder, liver, colon, appendix. No evidence of ureteral or bladder injury. Uterus and ovaries are normal. Evidence by placing the pelvic peritoneum, consistent endometriosis ablation, but no additional endometriosis noted. She underwent repair and postoperatively, she developed postoperative ileus. She has an NG tube to intermittent suction. She was continued on IV antibiotic in the form of Zosyn 3.375 g IV every 6 hours and she was on a [employer] using hydromorphone. She did actually very well. Gradually, she started having passed gas and had bowel movement. Her NG tube was clamped and then eventually removed. She is now tolerating her diet, has no nausea, no vomiting, no pain and decision was made to discharge her home to continue on oral antibiotic, pain management, and to follow with her primary care physician, and the area captain as well as her surgeon. PHYSICAL EXAMINATION: GENERAL: When I saw her today, she looked well and was clearly in no apparent respiratory distress, slightly pale, but no jaundice, cyanosis or thyromegaly. No jugular venous distention. No limb edema. VITAL SIGNS: Her heart rate was 51, blood pressure was 110/60, temperature was 98, respiratory rate was 20, and oxygen saturation was 97%. HEAD, EYES, EARS, NOSE AND THROAT: Normocephalic, atraumatic. NECK: Supple. HEART: Showed normal first and second heart sounds with no gallop, rub or murmur. CHEST: Clear to auscultation. No crepitation or rhonchi. ABDOMEN: Distended, soft, and nontender. No guarding or rigidity. No organomegaly. All hernial orifice intact. Bowel sounds normal. NEUROLOGIC: She was awake, alert, responding appropriately. All cranial nerves intact. EXTREMITIES: She moves extremities without difficulty. She ambulates without assistance or assistive devices. LABORATORY DATA: Her white cell count is 3600, hemoglobin 11, hematocrit 31, MCV 86, and platelet count 256. Her chemistry showed a serum sodium 142, potassium 3.8, chloride 106, bicarbonate 24, anion gap of 12, BUN 6, and creatinine 0.7. Estimated GFR was 94 mL per minute. Her glucose was 87 and calcium was 8.9. Her coronavirus by PCR was negative. DISCHARGE MEDICATIONS: She was discharged home to continue on Augmentin 875 mg 1 tablet twice a day with food for 5 days, fluconazole 150 mg 3 times a week and hydrocodone/APAP 5/325 one tablet every 6 hours p.r.n. for pain. She is also on Isabel-D 1 tablet daily, Flonase 2 sprays to each nostril once a day, and lactobacillus for probiotic 1 tablet once a day. FINAL DISCHARGE DIAGNOSES: 1. The patient is status post ablation of endometriosis with resultant small bowel injury with bleeding and acute peritonitis. 2. The patient is status post small bowel surgical repair. 3. Acute peritonitis, treated with IV antibiotic. 4. Postoperative paralytic ileus, resolved. She is now eating and drinking, has passed gas and bowel. 5. History of endometriosis. 6. Irritable bowel syndrome. 7. Leukopenia that is improving. 8. Hypokalemia, it has resolved. LUCHO LOPEZ MD DR: NEPTALI/xiomara JOB#: [id number] / [id number]
[2020-01-28] MEDS: LACTOBACILLUS RHAMNOSUS GG 1 CAPSULE. PO SCH (10:43)
[2020-01-28] MEDS: DOCUSATE SODIUM 100 MG CAPSULE. PO SCH (10:43)
[2020-01-28 11:00] VITALS: BP 112/62
[2020-01-28] MEDS ORDERED: HYDR-2759 PO (13:01)
== END 2020-01-28 13:20 | disposition home or self-care (01) | DRG 329 ==
LOC: 4 NORTH 03:15
PROVIDERS: ADMIT Internal Medicine; ATTEND Internal Medicine
PROC: 0DQ84ZZ Repair Small Intestine, Percutaneous Endoscopic Approach (ICD-10-PCS; principal; 2020-01-22 04:30)
DX: K63.1 Perforation of intestine (nontraumatic) (principal); K65.0 Generalized (acute) peritonitis; K66.1 Hemoperitoneum; S36.409A Unspecified injury of unspecified part of small intestine, initial encounter; K56.0 Paralytic ileus; D72.819 Decreased white blood cell count, unspecified; N83.209 Unspecified ovarian cyst, unspecified side; E87.6 Hypokalemia; K66.0 Peritoneal adhesions (postprocedural) (postinfection); Z20.828 Contact with and (suspected) exposure to other viral communicable diseases; R58 Hemorrhage, not elsewhere classified; K58.9 Irritable bowel syndrome, unspecified; Z82.49 Family history of ischemic heart disease and other diseases of the circulatory system; Z80.6 Family history of leukemia; Z82.5 Family history of asthma and other chronic lower respiratory diseases; Z87.891 Personal history of nicotine dependence
CPT/HCPCS: 36415; 80048; 80053; 85007; 85025; 85027; 87426; A7015; C1769; J0330; J0694; J1170; J1200; J1650; J2250; J2405; J2543; J2710; J3010; J3480; J3490; J7030; J7060; J7120; U0003; 97110-GP; 97116-GP; 97530-GO; 97530-GP; 97535-GO; G0378